=== PATIENT | female | born 1935 | race Caucasian/White ===

== ENCOUNTER 2017-08-16 17:10 | Inpatient (IN) | payer MEDICARE ==
[~2017-08-16] VITALS: Ht 162.6 cm; Wt 47.6 kg
[2017-08-16 20:54] LABS: BASOPHILS 0.2 % (0-2); EOSINOPHILS 0 % (0-7); HEMATOCRIT 31.6 % (36.0-48.0); HEMOGLOBIN 10.3 g/dL (12-16); IMMATURE GRANULOCYTES 0.2 % (0-5); LYMPHOCYTES 20.6 % (15-50); MCH 31.1 pg (26.0-34.0); MCHC 32.6 g/dL (31.0-37.0); MCV 95.5 fL (80.0-100.0); MEAN PLATELET VOLUME 10.1 fL (7.4-10.4); MONOCYTES 17.8 % (2-11); NEUTROPHILS 61.2 % (40-80); PLATELET COUNT 205 10x3/uL (130-400); RBC 3.31 10x6/uL (4.00-5.40); RDW 13.9 % (11.5-14.5); WBC 5.3 10x3/uL (4.8-10.8)
[2017-08-16 21:15] LABS: ALBUMIN 3.3 g/dL (3.4-5.0); ALKALINE PHOSPHATASE 133 U/L (46-116); ALT (SGPT) 20 U/L (10-68); BILIRUBIN - TOTAL 0.29 mg/dL (0.2-1.3); CALC OSMOLALITY 272 mosm/kg (275-300); CALCIUM 8.6 mg/dL (8.5-10.1); CARBON DIOXIDE 25.5 mmol/L (21.0-32.0); CHLORIDE - SERUM 99 mmol/L (98-107); CREATININE - SERUM 0.7 mg/dL (0.6-1.3); GLUCOSE 108 mg/dL (74-106); POTASSIUM - SERUM 4.2 mmol/L (3.5-5.1); PROTEIN - SERUM 7.4 g/dL (6.4-8.2); SODIUM 135 mmol/L (136-145); UREA NITROGEN 18 mg/dL (7-18); eGFR NON AFRICAN AMERICAN 84 mL/min (90-120)
[2017-08-16 21:22] LABS: INR 1.04 (0.85-1.17); PROTIME 13.4 SECONDS (11.6-15.0)
[2017-08-16 22:32] LABS: APPEARANCE CLEAR (CLEAR); BILIRUBIN NEGATIVE (NEGATIVE); COLOR YELLOW (YELLOW); GLUCOSE NEGATIVE (NEGATIVE); KETONE NEGATIVE (NEGATIVE); NITRITE NEGATIVE (NEGATIVE); PROTEIN TRACE mg/dL (NEGATIVE); SPECIFIC GRAVITY 1.015 (1.005-1.020); UROBILINOGEN NORMAL (NORMAL)
--- NOTE | 2017-08-16 23:35 | NUR ---
PT ARRIVED TO UNIT VIA WHEELCHAIR WITH ER CREW. ASSISITED TO BED AND HOOKED TO ICU MONITORS. ASSESSMENT COMPLETED SEE FLOW SHEET FOR DETAILS. WILL CONTINUE TO MONITOR PT.
[2017-08-16 23:46] VITALS: BP 130/48; BMI 18.0
[2017-08-17] VITALS (15 sets, daily range): BP systolic 99–147; BP diastolic 44–66; Ht 162.6 cm; Wt 47.6 kg
--- NOTE | 2017-08-17 01:06 | NUR ---
PT SLEEPING WITH NO SIGNS OF DISTRESS. WILL CONTINUE TO MONITOR.
[2017-08-17] MEDS ORDERED: ULTRAM50 MG PO (02:37)
[2017-08-17] MEDS ORDERED: LEVSIN/ANASP0.125 MG PO (02:37)
--- NOTE | 2017-08-17 03:00 | NUR ---
REASSESSMENT COMPLETED. NO CHANGES. SEE FLOW SHEET FOR FURTHER DETAILS. PT REQUESTED TO USE THE RESTROOM ASSISTED TO AND BACK TO BED AND POSITIONED FOR COMFORT. WILL CONTINUE TO MONITOR.
--- NOTE | 2017-08-17 05:11 | NUR ---
PT RESTING IN BED WITH NO SIGNS OF DISTRESS. WILL CONTINUE TO MONITOR.
--- NOTE | 2017-08-17 08:00 | NUR ---
PT UP TO RESTROOM. VOIDED WITHOUT DIFFICULTY. ASSISTED TO CHAIR. CALL LIGHT WITHIN REACH. SET UP WITH BREAKFAST TRAY.
--- NOTE | 2017-08-17 10:30 | NUR ---
DR. DAWSON AT BEDSIDE. UPDATED ON PT'S STATUS.
--- NOTE | 2017-08-17 11:08 | NUR ---
* Is the patient Alert and Oriented? Yes 0 * How many steps to enter\exit or inside your home? 0 0 * PCP Dr. Lucia 0 * Pharmacy [facility] 0 * Preadmission Environment Assisted Living 0 * Facility Name [facility] 0 * ADLs Partial Dependent 0 * Partial ADLs (Assistance needed) Ambulation 0 * Equipment Bedside Commode Cane Rolling Walker Shower Chair 0 * Additional services required to return to the preadmission environment? Yes 0 * Can the patient safely return to the preadmission environment? Yes 0 * Has this patient been hospitalized within the prior 30 days at any hospital? No Patient Name: HERBERT HAUSER Admission Status: ER Accout number: [id number] Admission Date: 08-16-2017 : 1935 Admission Diagnosis: Attending: MITA, Current LOS: 1 Planned Disposition: Home with Home Health Primary Insurance: MEDICARE A & B Discharge Planning Comments: CM met with patient to assess dc plans/needs. Patient states she lives at [facility]. She reports she uses a walker for ambulating. She also has a cane, BSC, & shower chair. She states she has fallen a couple of times at home. She goes to the dining room for all meals. Discussed SNF & home health options. She is agreeable to home health referral at discharge. YESY signed for [facility]. CM will follow & assist as needed. Lever Miller: Shana Magaña
--- NOTE | 2017-08-17 12:30 | NUR ---
PT SITTING UP AND EATING LUNCH. VITAL SIGNS STABLE.
--- NOTE | 2017-08-17 16:00 | NUR ---
PT'S CAREGIVER AT BEDSIDE. NO NEEDS AT THIS TIME. BROUGHT PT A PAIR OF GLASSES.
--- NOTE | 2017-08-17 18:32 | NUR ---
RECEIVED PT FOR CARE. PT RESTING IN BED WITH EYES OPEN. CALL LIGHT WITHIN REACH. VSS AT THIS TIME.
--- NOTE | 2017-08-17 19:30 | NUR ---
REPORT RECIEVED. ASSESSMENT COMPLETED. SEE FLOW SHEET FOR FURTHER DETAILS. PT IN CHAIR AT BED SIDE. ASSISTED TO BED AND POSITIONED FOR COMFORT. WILL CONTINUE TO MONITOR PT.
--- NOTE | 2017-08-17 21:00 | NUR ---
PT SLEEPING WITH EYES CLOSED. DENIES ANY NEEDS. WILL CONTINUE TO MONITOR.
--- NOTE | 2017-08-17 23:00 | NUR ---
VSS. PT IN BED DENIES ANY NEEDS. WILL CONTINUE TO MNITOR PT.
--- NOTE | 2017-08-18 01:00 | NUR ---
PT REQUEST TO GO TO THE RESTROOM ASSISTED AND BACK TO BED. DENIES ANY NEEDS. CALL LIGHT IN REACH, WILL CONTINUE TO MONITOR PT.
[2017-08-18 03:00] VITALS: BP 136/62
--- NOTE | 2017-08-18 03:00 | NUR ---
PT IN BED ASLEEP. DENIES ANY NEEDS.VSS. WILL CONTINUE TO MONITOR PT.
[2017-08-18 03:58] LABS: BASOPHILS 0.2 % (0-2); EOSINOPHILS 0 % (0-7); HEMATOCRIT 31.1 % (36.0-48.0); IMMATURE GRANULOCYTES 0.2 % (0-5); LYMPHOCYTES 21.8 % (15-50); MCH 30.4 pg (26.0-34.0); MCHC 32.2 g/dL (31.0-37.0); MCV 94.5 fL (80.0-100.0); MEAN PLATELET VOLUME 9.7 fL (7.4-10.4); NEUTROPHILS 59.8 % (40-80); PLATELET COUNT 209 10x3/uL (130-400); RBC 3.29 10x6/uL (4.00-5.40); RDW 14.1 % (11.5-14.5); WBC 5.9 10x3/uL (4.8-10.8)
[2017-08-18 04:16] LABS: CALC OSMOLALITY 279 mosm/kg (275-300); CALCIUM 8.8 mg/dL (8.5-10.1); CARBON DIOXIDE 27.7 mmol/L (21.0-32.0); CHLORIDE - SERUM 103 mmol/L (98-107); CREATININE - SERUM 0.7 mg/dL (0.6-1.3); GLUCOSE 96 mg/dL (74-106); POTASSIUM - SERUM 3.6 mmol/L (3.5-5.1); SODIUM 138 mmol/L (136-145); eGFR NON AFRICAN AMERICAN 84 mL/min (90-120)
[2017-08-18 04:18] LABS: UREA NITROGEN 25 mg/dL (7-18)
[2017-08-18 07:00] VITALS: BP 127/50
--- NOTE | 2017-08-18 07:15 | NUR ---
REPORT RECIEVED FROM COMPUTER OPERATIONS SPECIALIST NURSE. PT RESTING IN BED QUIETLY. NO S/SX OF ACUTE DISTRESS NOTED AT THIS TIME. VSS. FULL ASSESSMENT COMPLETE PER FLOWSHEET. REFER FOR DETAILS. CALL LIGHT IN REACH. BED IN LOW POSITION WITH ALARM ON. WILL CONT TO ASSESS.
--- NOTE | 2017-08-18 08:00 | NUR ---
ASSISTED TO BATHROOM. VOIDED CLEAR YELLOW URINE. ASSISTED BACK TO THE BED, PT REFUSED TO SIT IN RECLINER FOR BREAKFAST.
--- NOTE | 2017-08-18 09:34 | NUR ---
Patient Name: HERBERT HAUSER Encounter No: [id number] : 1935 Primary Insurance: MEDICARE A & B Anticipated DC Date: 08-18-2017 Planned Disposition: Home with Home Health External Planned Provider: [facility] DCP follow-up note: DC order rec'd. Home Health order faxed and called to Tiana with [facility]. Patient in agreement with discharge plan. No changes to plan. Shana Magaña
--- NOTE | 2017-08-18 10:00 | NUR ---
[facility] CALLED TO REPORT OF PT'S D/C.
--- NOTE | 2017-08-18 10:01 | NUR ---
Order rec'd for [facility] Call[facility] - Order, face sheet, and dc instructions faxed.
--- NOTE | 2017-08-18 11:00 | NUR ---
D/C'D VIA W/C CAREGIVER AT BEDSIDE FOR TRANSPORTATION. DENIES QUESTIONS AT THIS TIME. INSTRUCTED TO CALL US IF SHE THOUGHT OF ANY QUESTIONS WHEN SHE GOT HOME. ALL D/C INSTRUCTIONS REVIEWED WITH PT.
== END 2017-08-18 11:00 | disposition home health service (06) | DRG 84 ==
LOC: D.ER 17:10 → D.CVICU 20:51
PROVIDERS: Physician Assistant; ADMIT Family Medicine
DX: S06.5X9A Traumatic subdural hemorrhage with loss of consciousness of unspecified duration, initial encounter (principal); W19.XXXA Unspecified fall, initial encounter; F03.90 Unspecified dementia, unspecified severity, without behavioral disturbance, psychotic disturbance, mood disturbance, and anxiety; M35.00 Sjogren syndrome, unspecified

== ENCOUNTER → 2017-08-25 10:10 | Outpatient (CLI) | payer MEDICARE ==
[2017-08-17 10:42] VITALS: BMI 17.9
[~2017-08-25 10:10] MED LIST: LEVSIN/ANASP0.125 MG PO; ULTRAM50 MG PO
== END | disposition home or self-care (01) ==
LOC: D.CT 10:10
DX: S06.5X9A Traumatic subdural hemorrhage with loss of consciousness of unspecified duration, initial encounter (principal); X58.XXXA Exposure to other specified factors, initial encounter; Y93.89 Activity, other specified; Y92.89 Other specified places as the place of occurrence of the external cause

== ENCOUNTER 2017-08-31 12:50 | Emergency (ER) | payer MEDICARE ==
[2017-08-17 10:42] VITALS: BMI 17.9
[2017-08-31 13:51] LABS: BASOPHILS 0.2 % (0-2); EOSINOPHILS 0 % (0-7); HEMATOCRIT 31.6 % (36.0-48.0); HEMOGLOBIN 10.2 g/dL (12-16); LYMPHOCYTES 25.2 % (15-50); MCH 30.5 pg (26.0-34.0); MCHC 32.3 g/dL (31.0-37.0); MCV 94.6 fL (80.0-100.0); MEAN PLATELET VOLUME 9.2 fL (7.4-10.4); MONOCYTES 17.6 % (2-11); RBC 3.34 10x6/uL (4.00-5.40); RDW 14.1 % (11.5-14.5)
[2017-08-31 13:52] LABS: PLATELET COUNT 280 10x3/uL (130-400)
[2017-08-31 14:07] LABS: ALBUMIN 3.3 g/dL (3.4-5.0); ALKALINE PHOSPHATASE 112 U/L (46-116); ALT (SGPT) 16 U/L (10-68); BILIRUBIN - TOTAL 0.21 mg/dL (0.2-1.3); CALC OSMOLALITY 279 mosm/kg (275-300); CALCIUM 9.2 mg/dL (8.5-10.1); CARBON DIOXIDE 29.1 mmol/L (21.0-32.0); CHLORIDE - SERUM 102 mmol/L (98-107); CREATININE - SERUM 0.8 mg/dL (0.6-1.3); GLUCOSE 106 mg/dL (74-106); POTASSIUM - SERUM 4.4 mmol/L (3.5-5.1); PROTEIN - SERUM 7.5 g/dL (6.4-8.2); SODIUM 139 mmol/L (136-145); UREA NITROGEN 19 mg/dL (7-18); eGFR NON AFRICAN AMERICAN 72 mL/min (90-120)
[2017-08-31 14:16] LABS: CREATINE KINASE 52 UL (21-215); MAGNESIUM - SERUM 2.1 mg/dL (1.8-2.4); PRO BNP 272 pg/mL (0-450)
[2017-08-31 14:17] LABS: TROPONIN-I < 0.017 ng/mL (0.000-0.060)
== END 2017-08-31 14:54 | disposition home or self-care (01) ==
LOC: D.ER 12:50
PROVIDERS: Emergency Medicine
DX: R42 Dizziness and giddiness (principal); R53.1 Weakness; S06.5X9A Traumatic subdural hemorrhage with loss of consciousness of unspecified duration, initial encounter; X58.XXXA Exposure to other specified factors, initial encounter; Y93.89 Activity, other specified; Y92.89 Other specified places as the place of occurrence of the external cause; D64.9 Anemia, unspecified; M32.9 Systemic lupus erythematosus, unspecified; M35.00 Sjogren syndrome, unspecified; I44.4 Left anterior fascicular block

== ENCOUNTER 2017-09-02 13:19 | Inpatient (IN) | payer MEDICARE ==
[~2017-09-02] VITALS: Ht 162.6 cm; Wt 44.9 kg
--- NOTE | ~2017-09-02 | OP ---
PATIENT NAME: HERBERT HAUSER MEDICAL RECORD: [id number] :[birth year] LOCATION:[facility] [id number] ADMISSION DATE:09/02/17 SURGEON: TAYO DAWSON MD DATE OF OPERATION: 09/03/2017 PREOPERATIVE DIAGNOSIS: Left frontal subacute subdural hematoma. POSTOPERATIVE DIAGNOSIS: Left frontal subacute subdural hematoma. PROCEDURE: Left frontal timothy hole for evacuation of subdural hematoma. DESCRIPTION OF TECHNIQUE: After induction of general endotracheal anesthesia, the patient's left frontal area were prepped and draped in a sterile fashion. After infiltration of 1% lidocaine with 1:100,000 epinephrine over the left superior temporal line. A scalp incision was carried out with a #10 blade. A Midas Maxwell drill using a craniotome was used to create a timothy hole. Next, the dura was cauterized in a cruciate manner with bipolar cautery and opened with #11 blade. There was brisk egress of subacute subdural hematoma fluids from the subdural space. This was irrigated and closed with luke-warm saline irrigant solution until was crystal clear. The galea was reapproximated with interrupted 2-0 Vicryl suture. The skin was closed with anthony. A sterile dressing was applied to the wound. The patient was awakened in good condition and taken to recovery. All counts were reported as correct. ESTIMATED BLOOD LOSS: Minimal. TRANSINT:[id number] Voice Confirmation ID: [id number] DOCUMENT ID: [id number] TAYO DAWSON MD at 1324 CC: [id number] DICTATION DATE: 09/10/17 1430 CYTOMETRY TECHNOLOGIST: 09/10/17 1519 DIS IN 09/05/17 [place] [id number] [place] [id number]
[2017-09-02 14:01] LABS: BASOPHILS 0.3 % (0-2); EOSINOPHILS 0.2 % (0-7); HEMATOCRIT 32.3 % (36.0-48.0); HEMOGLOBIN 10.6 g/dL (12-16); IMMATURE GRANULOCYTES 0.2 % (0-5); LYMPHOCYTES 24.8 % (15-50); MCH 30.9 pg (26.0-34.0); MCHC 32.8 g/dL (31.0-37.0); MCV 94.2 fL (80.0-100.0); MEAN PLATELET VOLUME 9.7 fL (7.4-10.4); MONOCYTES 17.1 % (2-11); NEUTROPHILS 57.4 % (40-80); PLATELET COUNT 293 10x3/uL (130-400); RBC 3.43 10x6/uL (4.00-5.40); RDW 14.2 % (11.5-14.5); WBC 5.7 10x3/uL (4.8-10.8)
[2017-09-02 14:15] LABS: ALBUMIN 3.4 g/dL (3.4-5.0); ANION GAP 9.4 mmol/L (8-16); BILIRUBIN - TOTAL 0.25 mg/dL (0.2-1.3); CALCIUM 8.7 mg/dL (8.5-10.1); CARBON DIOXIDE 28.6 mmol/L (21.0-32.0); CREATININE - SERUM 0.8 mg/dL (0.6-1.3); PROTEIN - SERUM 7.9 g/dL (6.4-8.2)
[2017-09-02 14:22] LABS: APTT 29.9 SECONDS (22.8-39.4)
[2017-09-02 14:23] LABS: INR 0.95 (0.85-1.17); PROTIME 12.3 SECONDS (11.6-15.0)
[2017-09-02 15:59] LABS: APPEARANCE CLEAR (CLEAR); BILIRUBIN NEGATIVE (NEGATIVE); COLOR YELLOW (YELLOW); GLUCOSE NEGATIVE (NEGATIVE); KETONE NEGATIVE (NEGATIVE); NITRITE NEGATIVE (NEGATIVE); PROTEIN NEGATIVE (NEGATIVE); UROBILINOGEN NORMAL (NORMAL)
[2017-09-02 23:43] VITALS: BP 139/48; BMI 17.2
[2017-09-03] VITALS (9 sets, daily range): BP systolic 116–172; BP diastolic 59–83; Ht 162.6 cm; Wt 44.9 kg
[2017-09-03 09:58] LABS: HEMATOCRIT 30.9 % (36.0-48.0); HEMOGLOBIN 10.2 g/dL (12-16); MCH 31.1 pg (26.0-34.0); MCV 94.2 fL (80.0-100.0); MEAN PLATELET VOLUME 9.8 fL (7.4-10.4); PLATELET COUNT 268 10x3/uL (130-400); RBC 3.28 10x6/uL (4.00-5.40); RDW 14.3 % (11.5-14.5)
[2017-09-03 09:59] LABS: WBC 3.9 10x3/uL (4.8-10.8)
[2017-09-03 10:19] LABS: ALKALINE PHOSPHATASE 100 U/L (46-116); ALT (SGPT) 14 U/L (10-68); BILIRUBIN - TOTAL 0.35 mg/dL (0.2-1.3); CALC OSMOLALITY 272 mosm/kg (275-300); CALCIUM 8.9 mg/dL (8.5-10.1); CARBON DIOXIDE 25.4 mmol/L (21.0-32.0); CHLORIDE - SERUM 103 mmol/L (98-107); CREATININE - SERUM 0.7 mg/dL (0.6-1.3); GLUCOSE 89 mg/dL (74-106); POTASSIUM - SERUM 4.1 mmol/L (3.5-5.1); PROTEIN - SERUM 7.1 g/dL (6.4-8.2); SODIUM 137 mmol/L (136-145); UREA NITROGEN 12 mg/dL (7-18); eGFR NON AFRICAN AMERICAN 84 mL/min (90-120)
[2017-09-03 10:29] LABS: LYMPHOCYTES 34 % (15-50); MONOCYTES 12 % (2-11); NEUTROPHILS 49 % (40-80); PLATELET ESTIMATE NORMAL
[2017-09-03 22:54] LABS: APPEARANCE CLEAR (CLEAR); BILIRUBIN NEGATIVE (NEGATIVE); COLOR YELLOW (YELLOW); GLUCOSE NEGATIVE (NEGATIVE); KETONE MODERATE mg/dL (NEGATIVE); NITRITE NEGATIVE (NEGATIVE); PROTEIN NEGATIVE (NEGATIVE); UROBILINOGEN NORMAL (NORMAL)
[2017-09-03 23:52] LABS: BASOPHILS 0.1 % (0-2); EOSINOPHILS 0 % (0-7); HEMATOCRIT 32.1 % (36.0-48.0); HEMOGLOBIN 10.5 g/dL (12-16); IMMATURE GRANULOCYTES 0.1 % (0-5); LYMPHOCYTES 14.7 % (15-50); MCH 30.7 pg (26.0-34.0); MCHC 32.7 g/dL (31.0-37.0); MCV 93.9 fL (80.0-100.0); MEAN PLATELET VOLUME 9.3 fL (7.4-10.4); MONOCYTES 13.8 % (2-11); NEUTROPHILS 71.3 % (40-80); PLATELET COUNT 258 10x3/uL (130-400); RBC 3.42 10x6/uL (4.00-5.40); RDW 14.5 % (11.5-14.5)
[2017-09-03 23:57] LABS: WBC 6.9 10x3/uL (4.8-10.8)
[2017-09-04] VITALS (23 sets, daily range): BP systolic 94–153; BP diastolic 54–88
[2017-09-04 04:16] LABS: BASOPHILS 0.2 % (0-2); EOSINOPHILS 0 % (0-7); HEMATOCRIT 30.1 % (36.0-48.0); HEMOGLOBIN 9.8 g/dL (12-16); IMMATURE GRANULOCYTES 0.3 % (0-5); LYMPHOCYTES 15.1 % (15-50); MCH 30.5 pg (26.0-34.0); MCHC 32.6 g/dL (31.0-37.0); MCV 93.8 fL (80.0-100.0); MEAN PLATELET VOLUME 10.4 fL (7.4-10.4); MONOCYTES 17.1 % (2-11); NEUTROPHILS 67.3 % (40-80); PLATELET COUNT 220 10x3/uL (130-400); RBC 3.21 10x6/uL (4.00-5.40); RDW 14.5 % (11.5-14.5); WBC 6.1 10x3/uL (4.8-10.8)
[2017-09-04 04:42] LABS: ALBUMIN 2.9 g/dL (3.4-5.0); ANION GAP 14.4 mmol/L (8-16); BILIRUBIN - TOTAL 0.27 mg/dL (0.2-1.3); CALCIUM 8.3 mg/dL (8.5-10.1); CARBON DIOXIDE 24.3 mmol/L (21.0-32.0); CREATININE - SERUM 0.8 mg/dL (0.6-1.3); POTASSIUM - SERUM 3.7 mmol/L (3.5-5.1); PROTEIN - SERUM 6.6 g/dL (6.4-8.2)
[2017-09-05] VITALS (19 sets, daily range): BP systolic 121–151; BP diastolic 53–86
[2017-09-05 05:04] LABS: BASOPHILS 0 % (0-2); EOSINOPHILS 0 % (0-7); HEMATOCRIT 31.5 % (36.0-48.0); HEMOGLOBIN 10.2 g/dL (12-16); IMMATURE GRANULOCYTES 0.3 % (0-5); LYMPHOCYTES 12.4 % (15-50); MCH 30.2 pg (26.0-34.0); MCHC 32.4 g/dL (31.0-37.0); MCV 93.2 fL (80.0-100.0); MEAN PLATELET VOLUME 10.4 fL (7.4-10.4); MONOCYTES 2.9 % (2-11); NEUTROPHILS 84.4 % (40-80); PLATELET COUNT 256 10x3/uL (130-400); RBC 3.38 10x6/uL (4.00-5.40); RDW 14.4 % (11.5-14.5)
[2017-09-05 05:09] LABS: WBC 3.1 10x3/uL (4.8-10.8)
[2017-09-05 05:20] LABS: ALBUMIN 2.5 g/dL (3.4-5.0); ALKALINE PHOSPHATASE 83 U/L (46-116); ALT (SGPT) 13 U/L (10-68); CALC OSMOLALITY 278 mosm/kg (275-300); CALCIUM 8.8 mg/dL (8.5-10.1); CARBON DIOXIDE 26.7 mmol/L (21.0-32.0); CHLORIDE - SERUM 102 mmol/L (98-107); CREATININE - SERUM 0.6 mg/dL (0.6-1.3); GLUCOSE 136 mg/dL (74-106); POTASSIUM - SERUM 4.2 mmol/L (3.5-5.1); PROTEIN - SERUM 6.7 g/dL (6.4-8.2); SODIUM 138 mmol/L (136-145); UREA NITROGEN 14 mg/dL (7-18); eGFR NON AFRICAN AMERICAN > 90 mL/min (90-120)
== END 2017-09-05 19:03 | DRG 26 ==
LOC: D.ER 13:19 → D.MS 20:11 → D.ICU 20:11
PROVIDERS: Emergency Medicine; Family Medicine; Neurological Surgery
PROC: 00940ZZ Drainage of Intracranial Subdural Space, Open Approach (ICD-10-PCS; principal; 2017-09-03 11:45)
DX: S06.5X0A Traumatic subdural hemorrhage without loss of consciousness, initial encounter (principal); E87.1 Hypo-osmolality and hyponatremia; W19.XXXA Unspecified fall, initial encounter; F03.90 Unspecified dementia, unspecified severity, without behavioral disturbance, psychotic disturbance, mood disturbance, and anxiety; M35.00 Sjogren syndrome, unspecified; R41.0 Disorientation, unspecified

== ENCOUNTER 2017-09-05 18:45 | Inpatient (IN) | payer MEDICARE ==
[~2017-09-05] VITALS: Ht 162.6 cm; Wt 44.9 kg
--- NOTE | 2017-09-05 18:45 | NUR ---
PT. JUST ARRIVED TO REHAB UNIT VIA BED AND ESCORTED BY HOSPITAL NURSE STAFF FROM TRANSFERRING UNIT. ORIENTED TO ROOM AND EXPLAINED ADMISSION PROCESS WILL CONCLUDE ONCE PT. HAS BEEN ADMITTED INTO THE COMPUTER SYSTEM. PT. ACKNOWLEDGED UNDERSTANDING AND SAID NOT TO WORRY SHE WAS'T GOING ANYWHERE. CALL LIGHT WITHIN REACH AND CANTRELL TO BSD WITHOUT PROBLEMS.
[2017-09-05 22:41] VITALS: BP 146/59; BMI 17.0
--- NOTE | 2017-09-06 03:00 | NUR ---
PT. IN BED WITH HOB UP AT LEAST 30 DEGREES. EYES CLOSED AND RESP. EVEN. CANTRELL TO BSD WITHOUT PROBLEMS AND HER CALL LIGHT IS WITHIN REACH.
[2017-09-06 06:55] LABS: BASOPHILS 0 % (0-2); EOSINOPHILS 0 % (0-7); HEMATOCRIT 31.2 % (36.0-48.0); HEMOGLOBIN 10.2 g/dL (12-16); IMMATURE GRANULOCYTES 0.1 % (0-5); LYMPHOCYTES 5.7 % (15-50); MCH 30.4 pg (26.0-34.0); MCHC 32.7 g/dL (31.0-37.0); MCV 92.9 fL (80.0-100.0); MONOCYTES 7.5 % (2-11); NEUTROPHILS 86.7 % (40-80); PLATELET COUNT 258 10x3/uL (130-400); RBC 3.36 10x6/uL (4.00-5.40); RDW 14.2 % (11.5-14.5)
[2017-09-06 07:01] LABS: WBC 8.4 10x3/uL (4.8-10.8)
[2017-09-06 07:12] LABS: CALC OSMOLALITY 279 mosm/kg (275-300); CALCIUM 8.6 mg/dL (8.5-10.1); CARBON DIOXIDE 26.2 mmol/L (21.0-32.0); CHLORIDE - SERUM 104 mmol/L (98-107); CREATININE - SERUM 0.6 mg/dL (0.6-1.3); GLUCOSE 130 mg/dL (74-106); SODIUM 138 mmol/L (136-145); UREA NITROGEN 17 mg/dL (7-18); eGFR NON AFRICAN AMERICAN > 90 mL/min (90-120)
[2017-09-06 07:13] LABS: POTASSIUM - SERUM 3.4 mmol/L (3.5-5.1)
--- NOTE | 2017-09-06 08:15 | NUR ---
PT SITTING UP EATING BREAKFAST, DENIES NEEDS. WCTM.
[2017-09-06 08:51] VITALS: BP 156/70
[2017-09-06 11:03] VITALS: Ht 162.6 cm; Wt 44.9 kg
--- NOTE | 2017-09-06 14:00 | NUR ---
PT TOLERATED BREAKFAST AND LUNCH WELL. WILL CONTINUE FULL LIQUIDS THROUGH TODAY AND POSSIBLY ADV TOMORROW.
--- NOTE | 2017-09-06 18:30 | NUR ---
PT RESTING IN BED, WATCHING TV, DENIES NEEDS. WCTM.
--- NOTE | 2017-09-06 19:05 | NUR ---
IN BED, AWAKE. DENIES NEEDS.
[2017-09-06 21:10] VITALS: BP 123/60
--- NOTE | 2017-09-06 21:10 | NUR ---
ASSESSMENT COMPLETE. PATIENT HAS NO SCHEDULED HS MEDS. ASSISTED HER TO COMPLETE HER MENU. PLACED HER PARTIALS IN DENTURE CUP AND SET THEM TO SOAK OVERNIGHT.
--- NOTE | 2017-09-06 22:15 | NUR ---
REMAINS IN BED, EYES NOW CLOSED. APPEARS COMFORTABLE
--- NOTE | 2017-09-06 23:30 | NUR ---
BLADDER TRAINING CONTINUES. CANTRELL UNCLAMPED FOR 10 MINUTES AND ALLOWED TO DRAIN. NOW RECLAMPED.
--- NOTE | 2017-09-07 00:10 | NUR ---
PATIENT AWAKE AFTER REPOSITIONING HER EARLIER @ 2330. DENIES CURRENT NEEDS.
--- NOTE | 2017-09-07 00:10 | NUR ---
PATIENT URINATED 250ML CLEAR YELLOW URINE WHILE ON BEDPAN. VERY SMALL AMT URINE INCONTINENCE IN BRIEF. PULL-UP WAS CHANGED AFTER CLEANSING PATIENT.
--- NOTE | 2017-09-07 01:40 | NUR ---
UNCLAMPED CANTRELL CATH AROUND 0125. BEFORE I COULD RECLAMP IT PATIENT CALLED CRISTINO REPORTED SHE IS WET. CLEANSED HER AND CHANGED HER PINK PAD AND PULL-UP BRIEF AND REMOVED HER WET SCRUB BOTTOMS. IS EITHER URINATING AROUND THE CATHETER DUE TO BLADDER SPASMS OR BLADDER RESISTANCE TO CLAMPING. URINE VOLUME DURING UNCLAMPED PERIODS IS FAIRLY LOW, SO I SUSPECT BLADDER SPASMS.
--- NOTE | 2017-09-07 03:45 | NUR ---
REQUESTED ASSISTANCE TO RAISE HOB TO 40 DEGREES AGAIN. CONTINUES WITH BLADDER TRAINING. CANTRELL IS NOW RECLAMPED AFTER DRAINING FOR ABOUT 15 MINUTES. DENIES FURTHER NEEDS.
--- NOTE | 2017-09-07 05:50 | NUR ---
AWAKE. DENIES CURRENT NEEDS.
--- NOTE | 2017-09-07 07:27 | NUR ---
SITTING UP IN BED RESTING. DENIES ANY NEEDS. ALERT AND ORIENTED X4. NO S/SX OF ACUTE DISTRESS NOTED. CALL LIGHT AND PERSONAL ITEMS WITHIN REACH, BED LOW AND ALARM ON. WILL CONTINUE TO MONITOR
[2017-09-07 07:59] VITALS: BP 153/62
--- NOTE | 2017-09-07 09:40 | NUR ---
Nutrition Follow Up: Pt stated that her appetite is good. She said that she is drinking Ensure but prefers Boost. RD will order Boost with meals. Pt stated that she has lost about 20# a few years ago; she said she has not been able to gain the wt back but she has not had any recent wt loss. Pt is eating 55% meal avg on a full liquid diet. No BM since admit. Meds and labs reviewed. Rec continue advancing diet as tolerated per RESIDENTIAL THERAPIST. Will send Boost TID. RD following.
--- NOTE | 2017-09-07 10:30 | NUR ---
PT WAS IN RESTROOM WITH ROSEY ATTEMPTING TO USE RESTROOM, PT VAGALED DOWN. ROSEY AND JAMIE FLORES MOVED PT TO SAFETY IN THE BED AND CALLED FOR NURSING. VITALS WERE STABLE AND IS ALERT AND ORIENTED X3. BP 121/49 P78 R17 O2 97% ROOM AIR. ATTEMPTED TO GIVE PT MIRALAX BUT REFUSED. PUT ON BEDPAN PER PT REQUEST, HAD A LRG BM.
--- NOTE | 2017-09-07 12:29 | NUR ---
SITTING UP IN BED EATING LUNCH. DENIES ANY NEEDS OR PAIN. NO S/SX OF ACUTE DISTRESS NOTED. CALL LIGHT AND PERSONAL ITEMS WITHIN REACH, BED LOW AND ALARM ON. WILL CONTINUE TO MONITOR
--- NOTE | 2017-09-07 13:13 | RHP ---
PATIENT: HERBERT HAUSER MEDICAL RECORD: [id number] ACCOUNT: [id number] [id number] : [birth year] ADMISSION DATE: 09/05/17 REHABILITATION HISTORY AND PHYSICAL EXAMINATION POST ADMISSION PHYSICIAN EXAMINATION POST ADMISSION PHYSICAL EXAMINATION AND HISTORY AND PHYSICAL DATE OF ADMISSION: 09/05/2017 ADMITTING DIAGNOSES: A subdural hematoma. HISTORY OF PRESENT ILLNESS: The patient is an 82-year-old female patient admitted to inpatient rehab after tripping on covers and falling, hitting the head on the corner of the dresser. Caregiver reported some facial drooping and slurred speech the next morning with breakfast, was brought to the Emergency Room. She has a history of Sjogren and dementia. Dr. Anglin was consulted. He did a left frontal timothy hole on the patient. She was transferred to ICU to monitor her recovery. The patient has a recent onset of cognitive linguistic deficits, status post timothy hole secondary to fall. She is very confused. She is only alert to self. She believes it is 1907 and that she is at a store. She has some word finding difficulty at times with her responses. She is only partially aware of these errors. Her sentence formulation is moderately poor. She was able to name simple items, follow 1 and 2-step commands. Deficits appear to be in higher level cognitive with linguistic skills moderate to severely impaired with this. She is currently living in [facility] with a caregiver that checks in on her frequently. She was independent in her home and would like to return home at her prior level of functioning or better if possible, so she will definitely require speech therapy and also physical and occupational therapy. COMORBIDITIES: Include subdural hematoma, Sjogren's, dementia, hyponatremia following cataracts. PAST MEDICAL HISTORY: Significant for cataracts, Sjogren's and dementia. PAST SURGICAL HISTORY: Includes hysterectomy and now a timothy hole. ALLERGIES: PREDNISONE. MEDICATIONS: Current medications just include tramadol 50 mg q.6 hours p.r.n. She is on Levsin as needed for abdominal cramping and polyethylene glycol 17 grams in 8 ounces of water daily. HABITS: No alcohol or tobacco use. FAMILY HISTORY: Noncontributory. SOCIAL HISTORY: The patient wants to return back to her prior level of functioning at [facility]. REVIEW OF SYSTEMS: Currently difficult to obtain, but she denies any problems at this time. HEENT: Denies cold, cough, or congestion. CARDIOVASCULAR: Denies any chest pain. HISTORY AND PHYSICAL [id number] HERBERT HAUSER LUNGS: Denies any shortness of breath. PHYSICAL EXAMINATION: VITAL SIGNS: Stable. She is afebrile. GENERAL: An elderly female in no acute distress, alert upon exam. HEENT: Normocephalic, atraumatic. NEUROLOGIC: She is noted to have a surgical area noted. She also has some hair removed from this area. LUNGS: Clear at this time. HEART: Regular rate and rhythm. ABDOMEN: Benign. EXTREMITIES: No clubbing, cyanosis or edema. NEUROLOGIC: Nonfocal, but she does have some confusion noted. LABORATORY DATA: Her white count is 8.4, H&H of 10 and 31, and platelet count 258. Sodium is 138, potassium 3.4, BUN and creatinine of 17 and 0.6 and blood sugar is noted to be 170. ASSESSMENT: This is an 82-year-old female patient admitted to rehab with a working diagnosis of subdural hematoma caused by a fall. The patient has potential to make improvement. We instituted the following multidisciplinary therapies including to, but not limited to physical, occupational, respiratory, speech, nutritional services, prosthetics and orthotics. Given her complex condition and risk for more complications, rehabilitation services cannot be provided at a lower level of care such as a shelter facility. PLAN: 1. Admit to [facility] rehab for intensive inpatient therapy to include the following disciplines: A. Physical therapy to improve gait, all transfer skills and bed mobility to a modified independent level. B. Occupational therapy to improve activities of daily living to a modified independent level. C. Case management to assist with discharge planning and placement options. D. Nutrition to assist with nutritional needs. E. Rehabilitation nursing to assist in monitoring the following medical conditions and to assist with any type of bowel or bladder management. 2. The patient's current medication and medical care will be continued. 3. The patient will be placed on standard fall precautions. 4. The patient's estimated length of stay is approximately 7-10 days. 5. We will have this patient working with speech therapy throughout her stay and hopefully improve her cognitive function at this time. 6. We will discuss this patient during care team staff meeting this week. TRANSINT:[id number] Voice Confirmation ID: [id number] DOCUMENT ID: [id number] MAL notes whether there has been none or any medical/functional change since admission: - No change since pre-admission screen. MAL attests patient continues to be appropriate for IRF: - Continues to be appropriate. HISTORY AND PHYSICAL [id number] HERBERT HAUSER SCOTT MD at 1313 CC: [id number] DICTATION DATE: 09/06/17 0849 CHIEF LIBRARIAN CIRCULATION DEPARTMENT: 09/06/17 1129 ADM IN [place] [id number] [place] [id number]
--- NOTE | 2017-09-07 15:36 | NUR ---
SITTING UP IN BED WATCHING TV. DENIES ANY PAIN OR NEEDS. NO S/SX OF ACUTE DISTRESS NOTED. CALL LIGHT AND PERSONAL ITEMS WITHIN REACH, BED LOW AND ALARM ON. WILL CONTINUE TO MONITOR
--- NOTE | 2017-09-07 18:13 | NUR ---
SITTING UP IN BED EATING DINNER. DENIES ANY NEEDS OR PAIN. CALL LIGHT AND PERSONAL ITEMS WITHIN REACH, BED LOW AND ALARM ON. WILL CONTINUE TO MONITOR
--- NOTE | 2017-09-07 19:25 | NUR ---
IN BED AWAKE. GAVE HER MENU TO COMPLETE. DENIES NEEDS.
[2017-09-07 20:50] VITALS: BP 137/64
--- NOTE | 2017-09-07 20:50 | NUR ---
ASSESSMENT COMPLETE. PATIENT HAS NO SCHEDULED HS MEDS. DENIES CURRENT NEEDS OTHER THAN SHE WANTS TO BE HOME AND NOT IN REHAB.
--- NOTE | 2017-09-07 22:10 | NUR ---
IN BED AWAKE. DENIES NEEDS.
--- NOTE | 2017-09-08 00:10 | NUR ---
RESTING IN BED, EYES CLOSED.
--- NOTE | 2017-09-08 01:50 | NUR ---
PATIENT AWAKE. SAYS SHE HAS BEEN SLEEPING, BUT I HAVE NOT NOTICED IT ON MY ROUNDS. HAS BEEN AWAKE ALL BUT ONE OF MY ROUNDS SO FAR.
--- NOTE | 2017-09-08 04:30 | NUR ---
AWAKE. DENIES NEEDS. ASSISTED HER TO REPOSITION HIGHER UP IN BED.
--- NOTE | 2017-09-08 06:15 | NUR ---
D/C'D CANTRELL CATH PER ORDERS. URINE OUTPUT APPROX 550ML DARK YELLOW URINE. PERINEAL CARE GIVEN BY CLIENT PROGRAM MANAGER WHO REPORTED PINK-TINGED SECRETIONS IN PERINEAL AREA. CLIENT PROGRAM MANAGER BATHED PATIENT AND CHANGED HER SCRUB TOP, PULL-UP BRIEF AND ALL BED LINENS. PATIENT DENIES CURRENT NEEDS.
[2017-09-08 06:53] LABS: BASOPHILS 0 % (0-2); EOSINOPHILS 0 % (0-7); HEMATOCRIT 34.6 % (36.0-48.0); HEMOGLOBIN 11.2 g/dL (12-16); IMMATURE GRANULOCYTES 0.2 % (0-5); LYMPHOCYTES 7.8 % (15-50); MCH 30.1 pg (26.0-34.0); MCHC 32.4 g/dL (31.0-37.0); MEAN PLATELET VOLUME 10.8 fL (7.4-10.4); MONOCYTES 10.4 % (2-11); NEUTROPHILS 81.6 % (40-80); PLATELET COUNT 286 10x3/uL (130-400); RBC 3.72 10x6/uL (4.00-5.40); RDW 14.3 % (11.5-14.5)
[2017-09-08 06:55] LABS: WBC 12.7 10x3/uL (4.8-10.8)
[2017-09-08 06:56] LABS: CALC OSMOLALITY 274 mosm/kg (275-300); CALCIUM 8.6 mg/dL (8.5-10.1); CHLORIDE - SERUM 101 mmol/L (98-107); CREATININE - SERUM 0.7 mg/dL (0.6-1.3); GLUCOSE 107 mg/dL (74-106); POTASSIUM - SERUM 3.2 mmol/L (3.5-5.1); SODIUM 135 mmol/L (136-145); eGFR NON AFRICAN AMERICAN 84 mL/min (90-120)
[2017-09-08 07:01] LABS: UREA NITROGEN 26 mg/dL (7-18)
--- NOTE | 2017-09-08 07:20 | NUR ---
SITTING UP IN BED WATCHING TV. ALERT AND ORIENTED X3. DENIES ANY NEEDS OR PAIN. NO S/SX OF ACUTE DISTRESS NOTED. CALL LIGHT AND PERSONAL ITEMS WITHIN REACH, BED LOW AND ALARM ON. WILL CONTINUE TO MONITOR
[2017-09-08 07:56] VITALS: BP 135/63
--- NOTE | 2017-09-08 10:16 | NUR ---
SITTING UP IN W/C WATCHING TV. DENIES ANY NEEDS OR PAIN. NO S/SX OF ACUTE DISTRESS NOTED. CALL LIGHT AND PERSONAL ITEMS WITHIN REACH, W/C BRAKES LOCKED AND XIAO ALARM ON. WILL CONTINUE TO MONITOR
--- NOTE | 2017-09-08 12:00 | NUR ---
SITTING UP IN BED EATING LUNCH.FAMILY AT BEDSIDE.CL IN REACH.
--- NOTE | 2017-09-08 14:45 | NUR ---
AWAKENED FROM NAPPING;NOTED CONFUSION AND SOME GARBBLED LANGUAGE;CLEARING UP.SPEECH THERAPY ASSISTING.IN WC.PLACE AT NURSE YUE DUE TO CLIMBING OOB.ALARMS ON.
--- NOTE | 2017-09-08 15:41 | NUR ---
CARE TEAM MEETING: PATIENT NEW TO UNIT AND WILL BE RA AT NEXT MEETING. WILL CONTINUE TO FOLLOW WITH PATIENT AND ASSIST WITH NEEDS.
--- NOTE | 2017-09-08 16:00 | NUR ---
PLACED BACK IN BED WITH ALARM ON.CL IN REACH.
--- NOTE | 2017-09-08 19:40 | NUR ---
PT. IN BED WITH HOB UP AT LEAST 30 DEGREES. ASSESSMENT COMPLETED. PT. HAVING MORE DIFFICULTY WITH WORD FINDING AND IS VERY FORGETFUL. CALL LIGHT WITHIN REACH.
[2017-09-08 20:00] VITALS: BP 135/52
--- NOTE | 2017-09-08 23:10 | NUR ---
PT. IN BED WITH HOB UP AT LEAST 30 DEGREES WITH EYES CLOSED AND RESP. EVEN. CALL LIGHT WITHIN REACH.
--- NOTE | 2017-09-09 03:05 | NUR ---
PT. IN BED WITH HOB UP AT LEAST 30 DEGREES. EYE CLOSED AND RESP. EVEN. CALL LIGHT WITHIN REACH.
--- NOTE | 2017-09-09 03:30 | NUR ---
PT. UP TO BR TO URINATE. URINE YELLOW IN COLOR. NO RED OR PINK TINGED URINE.
[2017-09-09 08:11] VITALS: BP 127/62
--- NOTE | 2017-09-09 13:39 | NUR ---
RECIEVED UP IN THERAPY. PLEASANT AND CONFUSED. UP IN BED AND REFUSED LUNCH. THERAPY MAKING A COKE FLOAT FOR HER. CAREGIVER AT BEDSIDE AND ENCOURAGING HER TO EAT. DENIES ANY PAIN OR DISCOMFORT. CALL LIGHT IN REACH.
--- NOTE | 2017-09-09 19:25 | NUR ---
PT. IN BED WITH HOB UP FOR COMFORT. ASSESSMENT COMPLETED. PT. MORE CONFUSED THEN WHAT SHE WAS LAST NIGHT. ATTEMPTED TO RE-ORIENT AND UNSUCCESSFUL. WILL CONTINUE TO TRY THRU OUT SHIFT. ASSISTED PT. TO BATHROOM SHE HAD CLIMBED OUT OF BED FROM BETWEEN THE RAILINGS THAT WERE UP AND SET OFF THE BED ALARM, ALL AFTER I HAD JUST WALKED OUT OF HER ROOM. PT. VERY HARD TO DIRECT WHERE SHE NEEDED TO GO. GOT PT. IN BATHROOM, CHANGED BRIEF IT HAD SMALL AMOUNT OF STOOL SOILING, BACK TO BED AND POSITIONED TO COMFORT. PT. WAS ABLE TO REMEMBER BY NAME FROM TAKING CARE OF HER BEFORE. I REASSURED HER THAT I WAS HER NURSE AGAIN TONIGHT AND THAT I WOULD BE TAKING CARE OF HER AND SHE NEEDED TO TAKE A NAP. CALL LIGHT WITHIN REACH.
[2017-09-09 19:55] VITALS: BP 101/59
--- NOTE | 2017-09-09 23:08 | NUR ---
PT. IN BED WITH HOB UP FOR COMFORT. EYES OPEN AND SHE IS JUST LYING THERE QUIETLY. CALL LIGHT WITHIN REACH.
--- NOTE | 2017-09-10 03:05 | NUR ---
PT. IN BED WITH HOB UP FOR COMFORT WITH EYES CLOSED AND RESP. EVEN. PT. AWAKENS EASILY AND DENIES ANY NEEDS AT THIS TIME. CALL LIGHT WITHIN REACH. INSTRUCTED PT. THAT SHE NEEDS TO REST SOME MORE IT WAS ONLY 3A.M. PT. ACKNOWLEDGED UNDERSTANDING AND SAID SHE WOULD GO BACK TO SLEEP.
[2017-09-10 07:06] LABS: BASOPHILS 0 % (0-2); EOSINOPHILS 0.7 % (0-7); HEMOGLOBIN 10.6 g/dL (12-16); IMMATURE GRANULOCYTES 0.3 % (0-5); LYMPHOCYTES 9.7 % (15-50); MCH 30.1 pg (26.0-34.0); MCHC 32.1 g/dL (31.0-37.0); MCV 93.8 fL (80.0-100.0); MONOCYTES 16.9 % (2-11); NEUTROPHILS 72.4 % (40-80); PLATELET COUNT 265 10x3/uL (130-400); RBC 3.52 10x6/uL (4.00-5.40); RDW 14.4 % (11.5-14.5); WBC 10.9 10x3/uL (4.8-10.8)
[2017-09-10 07:27] LABS: CALC OSMOLALITY 272 mosm/kg (275-300); CARBON DIOXIDE 28.9 mmol/L (21.0-32.0); CHLORIDE - SERUM 100 mmol/L (98-107); CREATININE - SERUM 0.6 mg/dL (0.6-1.3); GLUCOSE 102 mg/dL (74-106); POTASSIUM - SERUM 3.8 mmol/L (3.5-5.1); SODIUM 136 mmol/L (136-145); UREA NITROGEN 14 mg/dL (7-18); eGFR NON AFRICAN AMERICAN > 90 mL/min (90-120)
--- NOTE | 2017-09-10 08:00 | NUR ---
PATIENT IS VERY CONFUSED. BED/CHAIR ALARM ON AT ALL TIMES. ROOM BY NURSINGS STATION. CALL LIGHT WITHIN REACH
[2017-09-10 08:36] VITALS: BP 147/48
--- NOTE | 2017-09-10 09:51 | NUR ---
PATIENT DOWN IN REHAB ROOM. WORKING WITH OCCUPATIONAL THERAPIST. DENIES ANY PAIN/DISC AT THIS TIME
--- NOTE | 2017-09-10 13:08 | NUR ---
CAREGIVER IN ROOM. THIS NURSE AND CASEMANAGER IN ROOM. TALKED TO CAREGIVER ABOUT HOW PATIENT WAS REFUSING THERAPY
--- NOTE | 2017-09-10 17:25 | NUR ---
PATIENT HAS CAR DETAILER IN ROOM AT THIS TIME.
--- NOTE | 2017-09-10 17:30 | NUR ---
SITTING UP EATING.
[2017-09-10 19:34] VITALS: BP 129/57
--- NOTE | 2017-09-10 19:34 | NUR ---
RECIEVED LAYING IN BED WITH EYES OPEN. ALERT AND ORIENTED TO PERSON ONLY. PLEASANT AND COOPERATIVE. HOB ELEVATED TO 30 DEGREES. SIDERAILS UP X3. CALL LIGHT IN REACH AND BED ALARM IN PLACE AND FUNCTIONING PROPERLY.
--- NOTE | 2017-09-11 00:01 | NUR ---
RESTING IN BED WITH EYES CLOSED. N OS/S OF DISTRESS OBSERVED. CALL LIGHT IN REACH.
--- NOTE | 2017-09-11 02:09 | NUR ---
ATTEMPTED TO GET OOB EARLIER AND ALARM SOUNDED. ABLE TO REACH PT BEFORE SHE GOT OOB. ASSISTED TO TOILET AND BACK TO BED. SEVERAL ATTEMPTS MADE TO ORIENT PT TO CALL LIGHT AND UNSUCESSFUL. CALL LIGHT AND OVERBED TABLE IN REACH.
--- NOTE | 2017-09-11 07:40 | NUR ---
SITTING UP IN BED ASSISTED WITH BREAKFAST. PT REQUESTED SCRAMBLED EGGS FOR BREAKFAST ORDER WAS PLACED. DENIES ANY PAIN. ALERT AND ORIENTED X2. NO S/SX OF ACUTE DISTRESS NOTED. CALL LIGHT AND PERSONAL ITEMS WITHIN REACH, BED LOW AND ALARM ON. WILL CONTINUE TO MONITOR
[2017-09-11 08:33] VITALS: BP 113/51
--- NOTE | 2017-09-11 09:10 | NUR ---
ADMINISTERED MORNING MEDS WITHOUT DIFFICULTY. NO S/SX OF ACUTE DISTRESS. ASSISTED WITH AMBULATING TO RESTROOM AND BACK TO BED WITH MIN ASSIST. CALL LIGHT AND WATER WITHIN REACH, BED LOW AND ALARM ON. WILL CONTINUE TO MONITOR
[2017-09-11 19:38] VITALS: BP 141/50
--- NOTE | 2017-09-11 19:52 | NUR ---
RECIEVED UP IN BED WITH EYES OPEN. C/O LEFT EYE INFECTION. NOTE LEFT FOR MD TO ASSESS. EYE IS ABDIRAHMAN AND PT STATES ITS PAINFUL. ASSISTED TO TOILET WITH MIN ASSIST. USES WALKER TO AMBULATE TO TOILET. CALL LIGHT IN REACH.
--- NOTE | 2017-09-11 20:00 | NUR ---
NOTIFIED DR. MARINO OF LEFT EYE REDDNESS ANF C/O OF PAIN. N.O FOR CORTISPORN 1 GTT Q 6 HRS. NOTIFIED LOKESH DANIEL OF NEW ORDER AND PT C/O FEELING LONLEY AND HE STATED "WE ALL ARE".
--- NOTE | 2017-09-11 23:39 | NUR ---
RESTING IN BED WITH EYES CLOSED. NO S/S OF DISTRESS OBSERVED. HOB ELEVATED TO 30 DEGREES. CALL LIGHT IN REACH.
--- NOTE | 2017-09-12 04:46 | NUR ---
PT HAD A INCONTINENT EPISODE. ASSISTED TO B/R AND CLEANED UP AND CLOTHES CHANGED. " STATED YOU KNOW I'M AN OLD LADY". PLEASANT AND TALKATIVE. BED CHANGED AND ASSISTED BACK TO BED. CALL LIGHT IN REAC AND REEDUCATED TO USE CALL LIGHT FOR ASSISTANCT TO THE B/R.
[2017-09-12 08:41] VITALS: BP 154/61
--- NOTE | 2017-09-12 11:23 | NUR ---
LYING IN BED EYES CLOSED RESTING. APPROPRIATE RISE AND FALL OF CHEST. NO S/SX OF ACUTE DISTRESS NOTED. CALL LIGHT AND WATER WITHIN REACH, BED LOW AND ALARM ON. WILL CONTINUE TO MONITOR
--- NOTE | 2017-09-12 14:01 | NUR ---
PT RESTING IN ROOM, DENIES NEEDS. WCTM.
--- NOTE | 2017-09-12 16:06 | NUR ---
SITTING UP IN BED LOOKING AT TV. DENIES ANY NEEDS OR PAIN. CALL LIGHT AND PERSONAL ITEMS WITHIN REACH, BED LOW AND ALARM ON. WILL CONTINUE TO MONITOR
[2017-09-12 19:56] VITALS: BP 118/48
--- NOTE | 2017-09-12 21:52 | NUR ---
RECIEVED UP IN BED WITH EYES OPEN AND TV ON. ALERT AND ORIENT TO PERSON AND PLACE. ABLE TO VOICE NEEDS. STITCHES TO RIGHT SIDE OF HEAD INTACT. NO REDNESS, SWELLING OR DRAINAGE TO SITE. OPEN TO AIR AT THIS TIME. HOB ELEVATED TO 30 DEGREES PER MD ORDER. CALL LIGHT AND OVER BED TABLE IN REACH.
--- NOTE | 2017-09-13 03:01 | NUR ---
RESTING IN BED WITH EYES CLSOED. NO S/S OF DISTRESS OBSERVED. O2@2LITERS PER N/C IN PLACE. ASSISTED TO TOILET AND BACK TO BED.CALL LIGHT AND OVERBED TABLER IN REACH.
[2017-09-13 07:21] LABS: BASOPHILS 0.1 % (0-2); HEMATOCRIT 29.3 % (36.0-48.0); HEMOGLOBIN 9.4 g/dL (12-16); IMMATURE GRANULOCYTES 0.4 % (0-5); LYMPHOCYTES 21.2 % (15-50); MCH 30.4 pg (26.0-34.0); MCHC 32.1 g/dL (31.0-37.0); MCV 94.8 fL (80.0-100.0); MEAN PLATELET VOLUME 10.3 fL (7.4-10.4); MONOCYTES 25.9 % (2-11); NEUTROPHILS 51.4 % (40-80); PLATELET COUNT 318 10x3/uL (130-400); RBC 3.09 10x6/uL (4.00-5.40); RDW 14.6 % (11.5-14.5); WBC 6.8 10x3/uL (4.8-10.8)
[2017-09-13 07:40] LABS: CALC OSMOLALITY 270 mosm/kg (275-300); CALCIUM 8.3 mg/dL (8.5-10.1); CARBON DIOXIDE 30.6 mmol/L (21.0-32.0); CHLORIDE - SERUM 99 mmol/L (98-107); CREATININE - SERUM 0.7 mg/dL (0.6-1.3); GLUCOSE 90 mg/dL (74-106); POTASSIUM - SERUM 4.4 mmol/L (3.5-5.1); SODIUM 135 mmol/L (136-145); UREA NITROGEN 14 mg/dL (7-18); eGFR NON AFRICAN AMERICAN 84 mL/min (90-120)
[2017-09-13 09:52] VITALS: BP 128/50
--- NOTE | 2017-09-13 10:34 | NUR ---
SITTING UP IN BED. BED AND CHAIR ALARM ARE IN PLACE. DENIES PAIN.
--- NOTE | 2017-09-13 16:10 | NUR ---
RESTING QUIETLY IN BED. EYES CLOSED. CALL LIGHT IN REACH. BED IN LOWEST POSITION
--- NOTE | 2017-09-13 19:30 | NUR ---
PT. IN BED WITH HOB UP AT LEAST 30 DEGREES. PT. REMEMBERS ME FROM TAKING CARE OF HER BEFORE. ASSESSMENT COMPLETED. PT. STILL ALERT BUT ONLY ORIENTED TO PERSON AND SITUATION. ATTEMPTED TO RE-ORIENT TO TIME AND PLACE BUT SHE CONTINUES TO SELECT THE SAME WRONG ANSWERS; 2018 [facility]. THESE WERE THE SAME WRONG ANSWERS WHEN SHE WAS ADMITTED ON THE . WILL CONTINUE TO RE-ORIENT. CALL LIGHT WITHIN REACH AND RE-INSTRUCTED PT. THAT SHE MUST HAVE ASSISTANCE TO GET OOB AND NOT TO BE UP BY HERSELF. PT. ABLE TO REPEAT THESE INSTRUCTIONS 100%.
--- NOTE | 2017-09-13 19:35 | NUR ---
HAD NO LONGER LEFT ROOM THAT PT'S BED ALARM IS GOING OFF AND PT. GETTING OOB BY HERSELF TO GO TO BR TO URINATE. ASSISTED PT. TO BATHROOM AND BACK TO BED AND RE-INSTRUCTED PT. ON USE OF CALL LIGHT FOR HER SAFETY. PT. STATED, "WHEN I GOT TO GO, I GOT TO GO". REMINDED PT. SHE HAD ON A BRIEF IF SHE HAPPENED TO URINATE A LITTLE BEFORE SHE GOT ASSISTANCE AND PT. SAID, "OH YEAH".
[2017-09-13 21:42] VITALS: BP 122/54
--- NOTE | 2017-09-13 23:10 | NUR ---
PT. IN BED WITH HOB UP AT LEAST 30 DEGREES AT ALL TIMES WITH EYES CLOSED AND RESP. EVEN. CALL LIGHT WITHIN REACH.
--- NOTE | 2017-09-14 03:08 | NUR ---
PT. IN BED WITH HOB UP FOR COMFORT. EYES CLOSED AND RESP. EVEN. CALL LIGHT WITHIN REACH.
--- NOTE | 2017-09-14 07:52 | NUR ---
SITTING UP IN BED EATING BREAKFAST. ALERT AND ORIENTED X3. DENIES ANY PAIN OR NEEDS. NO S/SX OF ACUTE DISTRESS NOTED. CALL LIGHT AND WATER WITHIN REACH, BED LOW AND ALARM ON. WILL CONTINUE TO MONITOR
--- NOTE | 2017-09-14 10:01 | NUR ---
IN ROOM SITTING UP IN W/C PERFORMING PT WITH REYES. NO S/SX OF ACUTE DISTRESS NOTED. WILL CONTINUE TO MONITOR
[2017-09-14 10:30] VITALS: BP 111/45
--- NOTE | 2017-09-14 12:07 | NUR ---
Nutrition Follow Up: Pt stated that her appetite is good. She said that she is eating well and drinking Boost. Pt is eating 28% meal avg on a regular diet. She is receiving Boost TID. +BM 09/08/17. Meds and labs reviewed. Rec continue current diet, supplement regimen. RD following.
--- NOTE | 2017-09-14 12:54 | NUR ---
SITTING UP IN BED HOB 45 DEGREES. NO S/SX OF ACUTE DISTRESS NOTED. DENIES ANY NEEDS OR PAIN. CALL LIGHT AND PERSONAL ITEMS WITHIN REACH, BED ALARM ON AND BED IN LOWEST POSITION. WILL CONTINUE TO MONITOR
--- NOTE | 2017-09-14 14:15 | NUR ---
RESTING QUIETLY IN BED.
--- NOTE | 2017-09-14 15:08 | NUR ---
LYING IN BED LOOKING AT TV. DENIES ANY PAIN OR NEEDS. CALL LIGHT AND PERSONL ITEMS WITHIN REACH, BED LOW AND ALARM ON. WILL CONTINUE TO MONITOR
--- NOTE | 2017-09-14 17:08 | NUR ---
LYING IN BED EYES CLOSED RESTING. NO S/SX OF RESPIRATORY DISTRESS NOTED. CALL LIGHT AND PERSONAL ITEMS WITHIN REACH, BED LOW AND ALARM ON. WILL CONTINUE TO MONITOR
--- NOTE | 2017-09-14 19:30 | NUR ---
PT. IN BED WITH HOB UP FOR COMFORT AND REMEMBERS ME. PT. NOW ORIENTED TO TIME WITHOUT ANY PROBLEMS. ASSESSMENT COMPLETED. PT. CONTINUES TO BE IMPULSIVE ABOUT GOING TO THE BR AND WILL NOT CALL FOR ASSISTANCE AND CONTINUES TO GET UP OOB AND GOES TO BR WITH HER WALKER FREQUENTLY. DAY SHIFT REPORTS SHE WENT AT LEAST 10 TIMES TODAY. INSTRUCTED PT. SHE WAS GOING TO HAVE TO TRAIN HER BLADDER SO THAT SHE CAN HOLD AND WAIT AT LEAST EVERY 2 HOURS. PT. STATED THAT SHE WAS LEAVING HERE WEDNESDAY AND SHE CAN DO WHAT EVER SHE WANTS. RE-INSTRUCTED PT. ON THE SAFETY MEASURES THE REHAB UNIT HAS AND IT IS IN HER BEST INTEREST TO ALWAYS FOLLOWS THOSE SAFETY MEASURES. PT. STATES SHE WILL. CALL LIGHT WITHIN REACH.
[2017-09-14 19:50] VITALS: BP 122/70
--- NOTE | 2017-09-14 23:13 | NUR ---
PT. IN BED WITH HOB UP AT LEAST 30 DEGREES AT ALL TIMES. EYES CLOSED AND RESP. EVEN. PT. HAS GOTTEN UP AND OUT OF BED BEFORE STAFF CAN GET TO HER WHEN BED ALARM IS GOING OFF AND PT. IS ALREADY IN THE BR. PT. REFUSES TO USE CALL LIGHT TONIGHT FOR ASSISTANCE. PT. HAS BEEN REPEATEDLY INSTRUCTED ON SAFETY AND SHE CAN REPEAT IT AND VOICE 100% UNDERSTANDING, BUT STILL REFUSES TO CALL FOR ASSISTANCE. CALL LIGHT WITHIN REACH.
--- NOTE | 2017-09-15 03:08 | NUR ---
PT. IN BED WITH HOB UP AT LEAST 30 DEGREES AT ALL TIMES. EYES CLOSED AND RESP. EVEN. CALL LIGHT WITHIN REACH.
--- NOTE | 2017-09-15 07:11 | NUR ---
SITTING UP IN BED LOOKING AT TV. DENIES ANY NEEDS OR PAIN. ALERT AND ORIENTED X3. NO S/SX OF ACUTE DISTRESS NOTED. CALL LIGHT AND PERSONAL ITEMS WITHIN REACH, BED LOW AND ALARM ON. WILL CONTINUE TO MONITOR
--- NOTE | 2017-09-15 08:01 | NUR ---
PT UP EATING BREAKFAST, DENIES NEEDS. WCTM.
[2017-09-15 09:01] VITALS: BP 123/54
--- NOTE | 2017-09-15 09:47 | NUR ---
REFERRAL HAS BEEN FAXED TO [facility] FOR POSSIBLE ADMISSION
--- NOTE | 2017-09-15 10:05 | NUR ---
SITTING UP IN BED LOOKING AT TV. C/O OF GENERALIZED PAIN 03/29 ADMINISTERED 50MG ULTRAM PER PT REQUEST. CALL LIGHT AND WATER WITHIN REACH, BED LOW AND ALARM ON. WILL CONTINUE TO MONITOR
--- NOTE | 2017-09-15 16:27 | NUR ---
PATIENT WAS ADMITTED TO REHAB FROM ACUTE FLOOR. DR. LOUIS IS HER PCP. WHEN DISCHARGED SHE WILL NEED AN APPOINTMENT WITH DR. DAWSON. SHE RESIDES AT [facility] AND HAS CAREGIVERS. WILL CONTINUE TO FOLLOW WITH PATIENT AND ASSIST WITH DISCHARGE NEEDS.
--- NOTE | 2017-09-15 17:15 | NUR ---
LITZY REMOVED PER ORDER FROM LEFT SIDE OF HEAD WO DIFFICULTY. 7 LITZY REMOVED. INCISION WELL APPROXIMATED.
--- NOTE | 2017-09-15 19:00 | NUR ---
PATIENT WAS GIVEN ULTRAM 50MG PO FOR PAIN AT 1953. PATIENT HAS NO OTHER C/O EXCEPT FOR WAITING FOR IT TO TAKE EFFECT.
[2017-09-15 21:15] VITALS: BP 129/63
--- NOTE | 2017-09-15 21:15 | NUR ---
ASSESSMENT AND HS MEDS COMPLETE. DENIES PAIN. ASSISTED HER UP TO BR COMMODE TO URINATE.
--- NOTE | 2017-09-15 22:05 | NUR ---
RESTING QUIETLY, EYES CLOSED.
--- NOTE | 2017-09-15 23:00 | NUR ---
SET OFF XIAO ALARM. WAS ASSISTED UP TO BR COMMODE BY LAINE CHUNG
--- NOTE | 2017-09-16 00:10 | NUR ---
RESTING QUIETLY IN BED. APPEARS COMFORTABLE.
--- NOTE | 2017-09-16 02:20 | NUR ---
IN BED, EYES CLOSED. RESTING QUIETLY, HOB UP 30 DEGREES.
--- NOTE | 2017-09-16 04:10 | NUR ---
IN BED AFTER BEING UP TOILETING AROUND 0345.
--- NOTE | 2017-09-16 06:20 | NUR ---
RESTING IN BED, EYES CLOSED AFTER ASSIST TO BR TO URINATE & SET-UP TO DRESS HERSELF, WHICH SHE HAS SINCE ACCOMPLISHED.
--- NOTE | 2017-09-16 07:20 | NUR ---
RESTING QUIETLY IN BED. CALL LIGHT IN REACH. BED IN LOWEST POSITION.
--- NOTE | 2017-09-16 08:00 | NUR ---
DR GEORGE MARINO INTO SEE PATIENT. NEW ORDERS FOR DISCHARGE TO [facility].
[2017-09-16 08:16] VITALS: BP 128/67
--- NOTE | 2017-09-16 09:34 | NUR ---
PATIENT DISCHARGING TO [facility] NO DME OR HOME HEALTH NEEDED AT THIS TIME. AN APPOINTMENT WITH DR. LOUIS WILL BE MADE AT TIME OF DISCHARGE FROM FACILITY. DR. DAWSON OFFICE CLOSED DUE TO HOLIDAY. FACILITY WILL CALL AND MAKE A FOLLOW UP APPOINTMENT . PATIENT CHOICE FORM FOR SNF AND [facility] FORM SIGNED, EXPLAINED AND FILED IN CHART. NURSE TO CALL REPORT. F[facility]ILITY [facility] WILL BE HERE AT 11:00 FOR TRANSPORTATION
--- NOTE | 2017-09-16 11:24 | NUR ---
DISCHARGE INSTRUCTIONS GIVEN TO PATIENT.
--- NOTE | 2017-09-16 11:50 | NUR ---
[facility] HERE TO TRANSPORT PATIENT TO FACILITY. REPORT CALLED TO AZUCENA HOYT AT FACILITY
--- NOTE | 2017-10-28 14:37 | DS ---
PATIENT:HERBERT HAUSER :31 MEDICAL RECORD: [id number] DISCHARGE SUMMARY ADMISSION DATE: 09/05/17 DISCHARGE DATE: 09/16/17 This is a discharge dated 09/16/2017 from inpatient rehab. PRIMARY DIAGNOSIS: Decreased functional ability and ability to provide activities of daily living secondary to a subdural hematoma. SECONDARY DIAGNOSES: 1. Dementia. 2. Sjogren disease. 3. Hypokalemia. 4. Hyponatremia. 5. Dysphagia. 6. Anemia. HOSPITAL COURSE: Full H&P is located elsewhere on the chart on this 82-year-old female who was admitted to inpatient rehab for physical therapy and occupational therapy to improve gait, transfer skills, bed mobility, and activities of daily living to a modified independent level. She was evaluated by PT and OT and their plans of care were followed. She required care home care for observation and assessment and medication administration. She was also seen by speech therapy for management of dysphagia. Electrolytes were managed by protocol. She continued on appropriate home medications. She did have bladder training with subsequent removal of her Alvares catheter. She was cooperative with therapies, progressing towards goals. Case management was involved for discharge planning. She was considered stable for discharge on 09/16/2017. DISCHARGE MEDICATIONS: As per discharge medication reconciliation. DISCHARGE DISPOSITION: The patient is discharged to [facility] where she will continue PT and OT as well as speech therapy. She will continue her current diet and level of activity and she will follow up with the primary physician at the long term and will follow with specialists as directed. At least 30 minutes was spent in this discharge activity. TRANSINT:[id number] Voice Confirmation ID: [id number] DOCUMENT ID: [id number] Dictated By: DINORAH RAMSEY I have interviewed/examined the above patient and agree with these documented findings. GEORGE MARINO MD at 1802 at 1437 CC: [id number] DICTATION DATE: 10/24/17 1510 FILL TECHNICIAN: 10/25/17 0159 DIS IN 09/16/17 [facility] [address] [place] [address]
== END 2017-09-16 11:53 | DRG 83 ==
LOC: D.REHAB 18:45 → UNDOADMIN 18:45 → D.REHAB 19:45
PROVIDERS: ADMIT Emergency Medicine
DX: S06.5X9A Traumatic subdural hemorrhage with loss of consciousness of unspecified duration, initial encounter (principal); E87.1 Hypo-osmolality and hyponatremia; W19.XXXA Unspecified fall, initial encounter; M35.00 Sjogren syndrome, unspecified; F03.90 Unspecified dementia, unspecified severity, without behavioral disturbance, psychotic disturbance, mood disturbance, and anxiety; R41.89 Other symptoms and signs involving cognitive functions and awareness

== ENCOUNTER 2017-11-25 14:10 | Inpatient (IN) | payer MEDICARE ==
[~2017-11-25] VITALS: Ht 162.6 cm; Wt 41.7 kg
[2017-11-25] VITALS (10 sets, daily range): BP systolic 116–140; BP diastolic 55–78; BMI 18.4
--- NOTE | ~2017-11-25 | HP ---
PATIENT: HERBERT HAUSER MEDICAL RECORD: [id number] ACCOUNT: [id number] LOCATION:[address] : 31 ADMISSION DATE: 11/25/17 HISTORY AND PHYSICAL EXAMINATION HISTORY OF PRESENT ILLNESS: An 82-year-old female with a history of intracranial bleed back in August. Actually has been discharged from rehab, doing fairly well, reported to a family member she has been having chest pain radiating to the jaw and neck, was transported urgently to the ER. She has been found to have anterior myocardial infarction and brought to the [facility] tube assembler on an urgent basis. PAST MEDICAL HISTORY: Includes history of intracranial bleed, otherwise no significant past medical history. ALLERGIES: None known. SOCIAL HISTORY: Recently discharged from rehabilitation. She is a nonsmoker. PHYSICAL EXAMINATION: GENERAL: Pleasant female, in mild to moderate distress. VITAL SIGNS: Blood pressure 116/64, pulse 84 and regular. HEENT: Normocephalic, atraumatic. NECK: No bruits. HEART: Regular. LUNGS: Fair air excursion. ABDOMEN: Soft, nontender. EXTREMITIES: Pulses 2+. There is no edema. IMPRESSION: Acute anterior myocardial infarction, to the lab on an urgent basis. TRANSINT:[id number] Voice Confirmation ID: [id number] DOCUMENT ID: [id number] KIRSTEN MEDRANO MD at 1341 CC: [id number] DICTATION DATE: 12/02/17 1120 COOK HELPER MEAT: 12/02/17 1140 DIS IN 11/27/17 [place] [address]
--- NOTE | ~2017-11-25 | OP ---
PATIENT NAME: HERBERT HAUSER MEDICAL RECORD: [id number] :31 LOCATION:[facility] ADMISSION DATE:11/25/17 SURGEON: KIRSTEN MEDRANO MD DATE OF OPERATION: 11/25/2017 [facility] STENT REPORT WELL CATHETERIZATION REPORT PROCEDURE: Left heart catheterization, selective coronary angiography, and right femoral artery approach. CATHETERS: A 5-Romansh sheath, 5/4 left and right Anahi, 5/4 pig. The procedure was well tolerated. The patient returned to the galicia, sheath removed. ExoSeal device placed. FINDINGS: Left ventriculography shows a mid anteroapical and inferoapical hypokinesis, although LV function is reduced 25%. CORONARY ANATOMY: 1. Left main: Left main is free of disease. 2. LAD has an ostial stenosis with some thrombus burden present of greater than 99%. 3. Circumflex: Left dominant system, free of disease. 4. Right coronary artery has a 90% stenosis. This is a nondominant system. 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 PLAN: Intervention momentarily. DESCRIPTION OF PROCEDURE: Using an indwelling 6-Romansh sheath, A JL4 guiding catheter provided excellent guide catheter support followed by a 300 cm Whisper wire, which was placed across the ostial stenosis and extended down to the midportion of the vessel. Pre-deployment balloon was a 3.0 x 12 [place]. Stent deployed were a 3.5 x 22 mm Integrity nondrug-eluting stent to 14 atmospheres and more at the ostial lesion a 3.5 x 12 mm nondrug-eluting stent at 14 atmospheres. Final angiography shows excellent resolution of 99% stenosis, no significant residual. ADRIENNE flow was 3 throughout the procedure and Integrilin was used during the case. Sheath closed with ExoSeal device. TRANSINT:[id number] Voice Confirmation ID: [id number] DOCUMENT ID: [id number] KIRSTEN MEDRANO MD at 1231 CC: [id number] DICTATION DATE: 11/25/17 1526 ENGINEER THIRD ASSISTANT: 11/25/17 1656 [place] [address]
--- NOTE | ~2017-11-25 | HEMODYNAMI ---
PATIENT:HERBERT HAUSER MEDICAL RECORD: [id number] : 31 LOCATION:[place] [address] ADMISSION DATE: 11/25/17 Generatedon:11/25/201717:14 Patient name: HERBERT HAUSER Patient #: [id number] SSN: : Date of study: 11/25/2017 Page: Of Hemodynamic Procedure Report Patient Data Patient Demographics Procedure consent was obtained First Name: HERBERT Gender: Female Last Name: ANALISA : 1935 Patient #: [id number] Age: 82 year(s) Race: Unknown Additional ID: [id number] Contact details [address]: [address] [place] [address] State: [place] City: [facility] Zip code: [address] Past Medical History Allergies: No known allergies Admission Admission Data Admission Date: 11/25/2017 Admission Time: 14:10 Room #: [facility] Procedure Procedure Types Cath Procedure Diagnostic Procedure Sedation Charges Moderate Sedation up to 15 minutes [facility] w/Coronaries PCI Procedure AMI/SVG/ART STUDIO TEACHER PTCA or Stent AMI-BMS/ANIL Initial Procedure Description Procedure Date Procedure Date: 11/25/2017 Procedure Start Time: 14:50 Procedure End Time: 17:13 Procedure Staff Name Function Thaddeus Sanchez MD Performing Physician Rosalia De Leon RT Monitor Michelle Tucker RN Nurse Sandra Pablo RT Scrub Procedure Data Cath Procedure Fluoroscopy Diagnostic fluoroscopy Total fluoroscopy Time: 8.5 time: 8.5 min min Diagnostic fluoroscopy Total fluoroscopy dose: 342 dose: 342 mGy mGy Contrast Material Contrast Material Type Amount (ml) Isovue 300 124 Entry Location Entry Primary Successful Side Size Upsize Upsize Entry Closure Succes sful Closure Location (Fr) 1 (Fr) 2 (Fr) Remarks Device Remarks Femoral Right 6 Fr Exoseal artery Short Estimated blood loss: 10 ml Diagnostic catheters Device Type Used For End Catheter Placement MULTIPACK JL 4.0 5Fr Left Coronary catheter Angiography MULTIPACK 3DRC 5Fr Right Coronary catheter Angiography MULTIPACK Pigtail 5 Fr LV Angiography catheter Procedure Complications No complications Procedure Medications Medication Administration Route Dosage Oxygen NC 2 l/min Lidocaine 2% added to field 20 Heparin Flush Bag added to field 2 bags (1000units/500ml NS) 0.9% NaCl I.V. 100 ml/hr Versed I.V. 0.5 mg Fentanyl I.V. 25 mcg Integrilin (Bolus I.V. 4 ml 2mg/ml) Integrilin (Bolus wasted 6 ml 2mg/ml) Plavix P.O. 300 mg Hemodynamics Rest Heart Rate: 72 (bpm) Pressure Samples Time Site Value (mmHg) Purpose Heart Use Rate(bpm) 15:12 LV 164/11,15 Snapshot 72 15:12 AO 160/72(111) Pullback 72 15:12 LV 131/14,11 Pullback 72 Gradients Valve Time Site 1 Site 2 Mean SEP/DFP Peak To Heart Use (mmHg) (sec/min) Peak Rate (mmHg) (bpm) Aortic 15:12 LV AO 0 72 131/14,11 160/72(111) Calculations Valve P-P Mean Valve Index Valve Source Name Gradient Area Flow (cm2) Aortic 0 0 Snapshots Pre Cath Intra NCS Post Cath Vital Signs Time Heart Resp SPO2 etCO2 NIBP (mmHg) Rhythm Pain Sedation Rate (ipm) (%) (mmHg) Status Level (bpm) 14:48:08 73 15 100 0 135/69(97) NSR 0 (11) 10(A) , No pain 14:52:46 73 14 99 0 136/71(96) NSR 0 (11) 10(A) , No pain 14:57:25 74 18 99 0 130/72(95) NSR 0 (11) 10(A) , No pain 15:02:04 74 18 100 0 128/64(95) NSR 0 (11) 10(A) , No pain 15:06:42 75 17 100 0 103/51(75) NSR 0 (11) 10(A) , No pain 15:11:48 77 15 100 0 155/76(116) NSR 0 (11) 10(A) , No pain 15:16:30 71 16 99 0 139/68(94) NSR 0 (11) 10(A) , No pain 15:21:09 72 16 99 0 133/64(92) NSR 0 (11) 10(A) , No pain 15:25:45 74 18 99 0 137/69(96) NSR 0 (11) 10(A) , No pain 15:30:22 78 18 99 0 132/79(108) NSR 0 (11) 10(A) , No pain 15:35:35 79 16 99 0 144/71(105) NSR 0 (11) 10(A) , No pain 15:40:14 78 17 100 0 136/74(100) NSR 0 (11) 10(A) , No pain 15:44:52 76 16 100 0 139/67(95) NSR 0 (11) 10(A) , No pain 15:49:31 79 16 100 0 139/63(96) NSR 0 (11) 10(A) , No pain 15:54:07 79 18 100 0 145/75(97) NSR 0 (11) 10(A) , No pain 15:58:46 79 16 100 0 147/75(93) NSR 0 (11) 10(A) , No pain 16:04:09 80 11 100 0 137/76(103) NSR 0 () 10(A) , No pain 16:08:46 80 14 100 0 142/80(110) NSR 0 (11) 10(A) , No pain 16:13:24 80 12 100 0 148/68(118) NSR 0 (11) 10(A) , No pain 16:18:05 78 11 100 0 141/71(96) NSR 0 (11) 10(A) , No pain 16:22:42 79 11 100 0 144/77(112) NSR 0 (11) 10(A) , No pain 16:27:24 79 10 100 0 141/77(96) NSR 0 (11) 10(A) , No pain 16:42:03 80 18 100 140/75(109) NSR 0 (11) 10(A) , No pain 16:56:42 81 15 100 134/73(99) NSR 0 (11) 10(A) , No pain 17:11:18 86 30 137/70(111) NSR 0 (11) 10(A) , No pain Medications Time Medication Route Dose Verified Delivered Reason Notes Effectiveness by by 14:50:52 Oxygen NC 2 Thaddeus Martinez used for l/min [facility] Tucker RN procedure MD 14:50:58 Lidocaine 2% added 20ml Thaddeus Travis for local to vial [facility] anesthetic field MD INIGUEZ 14:51:03 Heparin Flush added 2 Thaddeus Travis used for Bag to bags [facility] procedure (1000units/500ml field MD INIGUEZ NS) 14:51:12 0.9% NaCl I.V. 100 Thaddeus Martinez Per physician ml/hr [facility] Tucker RN, MD 14:51:20 Versed I.V. 0.5 Thaddeus Martinez for sedation mg [facility] Tucker RN, MD 14:51:25 Fentanyl I.V. 25 Thaddeus Bellaie for sedation mcg [facility] Tucker RN, MD 14:58:21 Integrilin I.V. 4 ml Thaddeus Martinez for wasted (Bolus 2mg/ml) [facility] Tucker RN anticoagulation 6 ml MD of vial 15:18:00 Integrilin wasted 6 ml Thaddeus Martinez for wasted (Bolus 2mg/ml) [facility] Tucker RN anticoagulation 6 ml MD of vial 15:18:55 Plavix P.O. 300 Thaddeus Martinez for mg [facility] Tucker RN antiplatelet therapy Procedure Log Time Note 14:25:47 Michelle Tucker RN sent for patient. Start room use. 14:31:28 Time tracking: Regular hours 14:31:33 Plan of Care:Hemodynamics will remain stable., Cardiac rhythm will remain stable., Comfort level will be maintained., Respiratory function will remain adequate., Patient/ family verbilizes understanding of procedure., Procedure tolerated without complication., Recovers from procedure without complications.. 14:38:40 Patient received from ED to CCL 1 Alert and oriented. Tansferred to table in Supine position. 14:38:41 Warm blankets applied, and hi hugger turned on for patient comfort. 14:38:42 Correct patient and procedure confirmed by team. 14:38:44 Signed procedure consent form obtained from patient. 14:38:44 ECG and BP/O2 sat monitors applied to patient. 14:47:16 Vital chart was started 14:47:23 Rhythm: sinus rhythm , w/ ST elevation 14:47:26 Full Disclosure recording started 14:47:30 H&P Date Dictated: 11/25/2017 ER History on chart.. 14:47:31 Pre-procedure instructions explained to patient. 14:47:32 Pre-op teaching completed and patient verbalized understanding. 14:47:33 Family in waiting room. 14:47:34 Patient NPO since Midnight. 14:47:40 Patient allergic to No known allergies 14:47:42 Is patient on blood thinner?No 14:47:46 ACC The patient was administered the following blood thiners within the last 24 hours: ACCPlavix 14:48:00 PATIENT LOADED ON 300MG PLAVIX IN ER 14:48:02 Patient diabetic? No. 14:48:04 Previous problem with sedation/anesthesia? No ? 14:48:07 Snore? No 14:48:09 Sleep apnea? No 14:48:10 Deviated septum? No 14:48:10 Opens mouth fully? Yes 14:48:11 Sticks out tongue? Yes 14:48:13 Airway obstruction? No ? 14:48:15 Dentures? No ? 14:48:17 Pre procedure: right dorsailis pedis pulse 1+ Palpable, but thready & weak; easily obliterated 14:48:19 Patient pain scale 0/10 ?. 14:48:24 IV patent on arrival in left hand with 0.9% NaCl at O. 14:48:26 Lab results completed and on chart. 14:48:30 Right groin area was prepped with chlora-prep and draped in sterile fashion 14:48:33 Alarms reviewed by R. N. 14:48:34 Sharps counted by scrub and verified by R.N. 14:48:37 Use device set Femoral Dx 14:49:38 Physician arrived 14:49:39 --------ALL STOP TIME OUT------ 14:49:40 Final Timeout: patient, procedure, and site verified with staff and physician. All members of the team are in agreement. 14:49:43 Right groin site verified by team. 14:49:46 Physical assessment completed. ASA score P 2 - A patient with mild systemic disease as per Thaddeus Sanchez MD. 14:49:50 Sedation plan: IV Moderate Sedation Medication:Versed, Fentanyl 14:49:57 Procedure started. 14:50:06 Local anesthetic to right femoral artery with Lidocaine 2% by Thaddeus Sanchez MD.INITIAL ACCESS ONLY 14:50:52 Oxygen 2 l/min NC was administered by Michelle Tucker RN; used for procedure; 14:50:58 Lidocaine 2% 20ml vial added to field was administered by Thaddeus Sanchez MD; for local anesthetic; 14:51:03 Heparin Flush Bag (1000units/500ml NS) 2 bags added to field was administered by Thaddeus Sanchez MD; used for procedure; 14:51:09 Zero performed for pressure channel P1 14:51:12 0.9% NaCl 100 ml/hr I.V. was administered by Michelle Tucker RN; Per physician; 14:51:20 Versed 0.5 mg I.V. was administered by Michelle Tucker RN; for sedation; 14:51:20 Zero performed for pressure channel P1 14:51:25 Fentanyl 25 mcg I.V. was administered by Michelle Tucker RN; for sedation; 14:51:40 A 6 Fr Short sheath was inserted into the Right Femoral artery 14:51:57 ACIST Syringe (30421) opened to sterile field. 14:51:58 Bag Decanter () opened to sterile field. 14:51:59 Medline Cath Pack ([id number]) opened to sterile field. 14:52:00 DIAGNOSTIC WIRE .035 260cm J wire (001165) opened to sterile field. 14:52:02 ACIST Hand Control (97596) opened to sterile field. 14:52:02 ACIST Manifold (29122) opened to sterile field. 14:52:03 DIAGNOSTIC Multipack 5Fr catheter set ([id number]) opened to sterile field. 14:52:04 Tegaderm 4 x 4 (1626W) opened to sterile field. 14:52:05 PERCUTANEOUS ENTRY 19GA needle opened to sterile field. 14:52:16 Use device set EHRHARDT PCI 14:52:19 SHEATH 6FR [place] (GSG071) opened to sterile field. 14:52:20 INFLATOR Merit BasixCompak (WF9850) opened to sterile field. 14:52:23 WHISPER 300cm guide wire ([id number]) opened to sterile field. 14:52:58 A MULTIPACK JL 4.0 5Fr catheter was advanced over the wire and used for Left Coronary Angiography. 14:54:11 Catheter removed. 14:54:25 A MULTIPACK 3DRC 5Fr catheter was advanced over the wire and used for Right Coronary Angiography. 14:56:03 Catheter removed. 14:56:50 GUIDE 6FR JL 4.0 SH catheter ([id number]) opened to sterile field. 14:58:21 Integrilin (Bolus 2mg/ml) 4 ml I.V. was administered by Michelle Tucker RN; for anticoagulation; wasted 6 ml of vial 14:58:40 6 Fr JL 4.0 SH guide catheter was inserted over the wire 14:58:44 WHISPER wire advanced. 15:00:49 Inflation number: 1 A EMERGE OTW 2.5 x 15 balloon ([id number]) was prepped and advanced across the Prox LAD, then inflated to 8 SUMIT for 0:08 (min:sec). 15:01:08 Inflation number: 2 The EMERGE OTW 2.5 x 15 balloon ([id number]) was reinflated across the Prox LAD, to 8 SUMIT for 0:06 (min:sec). 15:01:25 Inflation number: 3 The EMERGE OTW 2.5 x 15 balloon ([id number]) was reinflated across the Prox LAD, to 8 SUMIT for 0:06 (min:sec). 15:02:50 Balloon removed over the wire. 15:05:36 Inflation Number: 4 A INTEGRITY OTW 3.5 X 22 stent ([id number]) was prepped and advanced across the Prox LAD. The stent was deployed at 14 SUMIT for 0:20 (min:sec). 15:06:33 Stent catheter was removed intact over wire. 15:09:33 Inflation Number: 5 A INTEGRITY OTW 3.5 X 12 stent ([id number]) was prepped and advanced across the Prox LAD. The stent was deployed at 14 SUMIT for 0:18 (min:sec). 15:10:02 Stent catheter was removed intact over wire. 15:10:03 Wire removed. 15:10:03 Guide catheter removed. 15:10:16 A MULTIPACK Pigtail 5 Fr catheter was advanced over the wire and used for LV Angiography. 15:12:35 LV gram done using SOLIS 15:12:36 LV hemodynamics recorded. 15:12:39 Injector settings: Ml/sec: 10, Volume: 20, 15:12:45 EF : 25 % 15:12:50 Catheter removed. 15:13:01 Sheath removed intact; hemostasis achieved with Exoseal to the Right Femoral artery. 15:13:13 EXOSEAL 6Fr (EX600) opened to sterile field. 15:13:23 Procedure ended.(Physican Out) 15:13:36 Fluoroscopy time 08.50 minutes. 15:13:45 Flurop Dose total: 342 15:13:45 Fluoroscopy dose: 342 mGy 15:13:51 Contrast amount:Isovue 300 124ml. 15:13:52 Sharps counted by scrub and verified by R.N. 15:13:54 Insertion/operative site no bleeding no hematoma. 15:14:20 Post right femoral artery:stable, clean and dry 15:15:47 Post Procedure Pulses reassessed and unchanged 15:15:55 Post procedure: right dorsailis pedis pulse 2+ Normal; easily identifiable; not easily obliterated. 15:16:00 Post-procedure physical assessment completed. ASA score P 2 - A patient with mild systemic disease as per Thaddeus Sanchez MD. 15:16:24 Post procedure rhythm: sinus rhythm 15:16:26 Estimated blood loss: 10 ml 15:16:28 Post procedure instruction explained to patient.Patient verbalizes understanding. 15:16:28 Patient needs reinforcement of post procedure teaching. 15:16:40 Procedure type changed to Cath procedure, Diagnostic procedure, Sedation Charges, Moderate Sedation up to 15 minutes, LHC, C w/Coronaries, PCI procedure, AMI/SVG/ART STUDIO TEACHER PTCA or Stent, AMI-BMS/ANIL Initial 15:18:00 Integrilin (Bolus 2mg/ml) 6 ml wasted was administered by Michelle Tucker RN; for anticoagulation; wasted 6 ml of vial 15:18:55 Plavix 300 mg P.O. was administered by Michelle Tucker RN; for antiplatelet therapy; 15:25:43 Post right femoral artery:hematoma 15:25:50 Femstop placed over the right femoral artery at 150 mmHg. Hemostasis achieved. 15:25:55 FEMSTOP Gold ([id number]) opened to sterile field. 15:26:03 Procedure Complication : No complications 15:26:16 WAITING ON ICU BED 15:26:19 See physician's report for complete and final results. 15:28:17 Procedure and supply charges have been captured, reviewed, submitted and are correct. 16:08:58 patient transferred to off procedure table onto a bed. Still waiting for CVICU bed. 16:15:17 DAVID SAID PATIENT COULD GO TO CV01, BUT HAD TO TRANSFER PATIENT OUT FIRST. SHOULD TAKE ABO UT 30 MINUTES 16:19:48 FEMSTOP REMOVED. RFA HAS NO BLEEDING OR HEMATOMA. 16:20:08 PATIENT RESTING COMFORTABLY. 16:20:35 Post-op/insertion site Right Femoral artery dressed using a 4 x 4 and Tegaderm. 16:34:34 DAVID CALLED BACK AND TOLD US WE WOULDN'T BE ABLE TO TRANSFER TIL AFTER 5PM. PATIENT REMAINS IN PHYSICIAN/OPHTHALMOLOGIST PROCEDURE ROOM. 16:40:50 RT GROIN REMAINS INTACT, CLEAN AND DRY 17:13:33 Vital chart was stopped 17:13:35 Report given to CVICU. 17:13:38 Patient transfered to CVICU with Bed. 17:13:42 Procedure ended. 17:13:42 Full Disclosure recording stopped 17:13:46 End room use (Document Last) Intervention Summary Intervention Notes Time ActionType Lesion and Equipment Action# Pressure Duration Attributes Used 15:00:49 Inflate Prox LAD EMERGE OTW 1 8 00:08 balloon 2.5 x 15 balloon ([id number]) 15:01:08 Reinflate Prox LAD EMERGE OTW 2 8 00:06 balloon 2.5 x 15 balloon ([id number]) 15:01:25 Reinflate Prox LAD EMERGE OTW 3 8 00:06 balloon 2.5 x 15 balloon ([id number]) 15:05:36 Place stent Prox LAD INTEGRITY 4 14 00:20 OTW 3.5 X 22 stent ([id number]) 15:09:33 Place stent Prox LAD INTEGRITY 5 14 00:18 OTW 3.5 X 12 stent ([id number]) Device Usage Item Name Manufacture Quantity Catalog Number Hospital Part Current Min imal Lot# / Charge Number Stock Stock Serial# Code ACIST Acist 1 77997 581381 377271 774534 20 Syringe Medical (44391) Systems Inc Bag Decanter Microtek 1 008571 26613 315831 5 () Medical Inc. Medline Cath Cardinal 1 [id number] 480806 68625 083179 5 [place] ([id number]) DIAGNOSTIC [facility] Chaz 1 673254 766662 474807 320066 30 WIRE .035 260cm J wire (916093) ACIST Hand Acist 1 90402 654431 096663 812512 5 Control Medical (80650) Systems Inc ACIST Acist 1 71258 186009 286988 461085 5 Manifold Medical (79137) Systems Inc DIAGNOSTIC Cardinal 1 TX7167 249278 22561 585769 30 Multipack Health 5Fr catheter set (YA9839) Tegaderm 4 x 3M 1 1626W 339579 013368 371947 5 4 (1626W) PERCUTANEOUS [facility] 1 K47192 342146 119156 5 ENTRY 19GA needle SHEATH 6FR Terumo 1 AES617 404437 381184 910320 40 [place] (QEB814) INFLATOR Merit 1 OQ5694 480647 332449 880973 15 [facility] Medical BasixCompak (LP1673) WHISPER [place] 1 [id number] 335186 622103 723727 5 300cm guide Vascular wire ([id number]) MULTIPACK JL Cardinal 1 083654 5 4.0 5Fr Health catheter MULTIPACK Cardinal 1 636286 5 3DRC 5Fr Health catheter GUIDE 6FR JL Medtronic 1 [id number] 824859 30347 296706 1 4.0 SH catheter ([id number]) EMERGE OTW [place] 1 [id number] 792539 425433 893225 5 [id number] 2.5 x 15 Scientific balloon ([id number]) INTEGRITY Medtronic 1 [id number] 080167 698370 3 [id number] OTW 3.5 X 22 stent ([id number]) INTEGRITY Medtronic 1 [id number] 219813 794832 6 [id number] OTW 3.5 X 12 stent ([id number]) MULTIPACK Cardinal 1 907858 5 Pigtail 5 Fr Health catheter EXOSEAL 6Fr Cardinal 1 EX600 530044 346194 410100 10 (EX600) Health FEMSTOP Gold St Chaz 1 G84726 875520 177637 077880 5 (J44307) Signature Audit [place] Stage Time Signature Unsigned Intra-Procedure 11/25/2017 Rosalia 5:13:57 PM Counts RT(R) Signatures Monitor : Rosalia Signature : Counts RT Date : Time : [place] [address] [address] [place] [address]
[2017-11-25 14:26] LABS: HEMATOCRIT 32.6 % (36.0-48.0); HEMOGLOBIN 10.4 g/dL (12-16); MCH 29.5 pg (26.0-34.0); MCHC 31.9 g/dL (31.0-37.0); MCV 92.4 fL (80.0-100.0); MEAN PLATELET VOLUME 9.9 fL (7.4-10.4); PLATELET COUNT 259 10x3/uL (130-400); RBC 3.53 10x6/uL (4.00-5.40); WBC 4.8 10x3/uL (4.8-10.8)
[2017-11-25 14:40] LABS: ALBUMIN 3.2 g/dL (3.4-5.0); ANION GAP 12.8 mmol/L (8-16); BILIRUBIN - TOTAL 0.24 mg/dL (0.2-1.3); CALCIUM 8.8 mg/dL (8.5-10.1); CARBON DIOXIDE 28.1 mmol/L (21.0-32.0); CREATININE - SERUM 0.8 mg/dL (0.6-1.3); POTASSIUM - SERUM 3.9 mmol/L (3.5-5.1); PROTEIN - SERUM 7.7 g/dL (6.4-8.2)
[2017-11-25 14:57] LABS: TROPONIN-I 0.279 ng/mL (0.000-0.060)
[2017-11-25 15:16] LABS: EOSINOPHILS 1 % (0-7); LYMPHOCYTES 16 % (15-50); MONOCYTES 3 % (2-11); NEUTROPHILS 80 % (40-80); PLATELET ESTIMATE NORMAL; ROULEAUX 1+
[2017-11-25 15:18] LABS: CHOLESTEROL, TOTAL 156 mg/dL (0-200); CKMB 1.7 U/L (0.0-3.6); HDL CHOLESTEROL 52 mg/dL (32-96); LDL CHOLESTEROL 88 mg/dL (0-100); LDL-HDL RATIO 1.7 ratio (1.5-3.5); TRIGLYCERIDE 83 mg/dL (30-200)
[2017-11-26] VITALS (14 sets, daily range): BP systolic 102–128; BP diastolic 44–63; Ht 162.6 cm; Wt 41.7 kg
[2017-11-27 01:18] VITALS: BP 115/57
[2017-11-27 06:37] VITALS: BP 110/58
[2017-11-27] MEDS ORDERED: PLAVIX75 MG PO (07:26)
[2017-11-27 08:44] VITALS: BP 134/66
[2017-11-27 11:49] VITALS: BP 112/53
== END 2017-11-27 13:15 | disposition home or self-care (01) | DRG 249 ==
LOC: D.CATH 14:10 → D.ER 14:10 → EDSTATUS 14:55 → D.CVICU 17:10 → D.CATH 17:11 → D.CVICU 17:11 → D.M2 11-26 16:51
PROVIDERS: Emergency Medicine; Internal Medicine Interventional Cardiology
PROC: B2111ZZ Fluoroscopy of Multiple Coronary Arteries using Low Osmolar Contrast (ICD-10-PCS; 2017-11-25)
PROC: B2151ZZ Fluoroscopy of Left Heart using Low Osmolar Contrast (ICD-10-PCS; 2017-11-25)
PROC: 02703EZ Dilation of Coronary Artery, One Artery with Two Intraluminal Devices, Percutaneous Approach (ICD-10-PCS; principal; 2017-11-25 14:30)
PROC: 4A023N7 Measurement of Cardiac Sampling and Pressure, Left Heart, Percutaneous Approach (ICD-10-PCS; 2017-11-25 14:30)
DX: I21.9 Acute myocardial infarction, unspecified (principal); I25.10 Atherosclerotic heart disease of native coronary artery without angina pectoris

== ENCOUNTER → 2018-05-06 18:59 | Outpatient (CLI) | payer MEDICARE ==
[2017-11-26 09:26] VITALS: BMI 19.2
[~2018-05-06 18:59] MED LIST changes: +PLAVIX75 MG PO
== END | disposition home or self-care (01) ==
LOC: D.LABREF 18:59
DX: N39.0 Urinary tract infection, site not specified (principal)

== ENCOUNTER 2019-01-31 13:32 | Observation (INO) | payer MEDICARE ==
[~2019-01-31] VITALS: Ht 162.6 cm; Wt 46.1 kg
[2019-01-31] VITALS (7 sets, daily range): BP systolic 156–191; BP diastolic 47–93; BMI 22.0
[2019-01-31 14:37] LABS: BASOPHILS 0.7 % (0-2); EOSINOPHILS 1.9 % (0-7); HEMATOCRIT 32.6 % (36.0-48.0); HEMOGLOBIN 10.5 g/dL (12-16); IMMATURE GRANULOCYTES 0.2 % (0-5); LYMPHOCYTES 31.3 % (15-50); MCH 29.4 pg (26.0-34.0); MCHC 32.2 g/dL (31.0-37.0); MCV 91.3 fL (80.0-100.0); MONOCYTES 18.5 % (2-11); NEUTROPHILS 47.4 % (40-80); PLATELET COUNT 255 10x3/uL (130-400); RBC 3.57 10x6/uL (4.00-5.40); RDW 14.3 % (11.5-14.5); WBC 4.3 10x3/uL (4.8-10.8)
[2019-01-31 14:50] LABS: APPEARANCE CLEAR (CLEAR); BILIRUBIN NEGATIVE (NEGATIVE); COLOR YELLOW (YELLOW); GLUCOSE NEGATIVE (NEGATIVE); KETONE NEGATIVE (NEGATIVE); NITRITE NEGATIVE (NEGATIVE); PROTEIN NEGATIVE (NEGATIVE); SPECIFIC GRAVITY 1.015 (1.005-1.020); UROBILINOGEN NORMAL (NORMAL)
[2019-01-31 14:51] LABS: BACTERIA FEW /hpf (NONE SEEN); EPITHELIAL CELLS OCC /hpf (0-5); RED CELLS - URINE 0-5 /hpf (0-5); WHITE CELLS - URINE 0-5 /hpf (0-5)
[2019-01-31 15:05] LABS: ALBUMIN 3.3 g/dL (3.4-5.0); ALKALINE PHOSPHATASE 125 U/L (46-116); ALT (SGPT) 15 U/L (10-68); BILIRUBIN - TOTAL 0.33 mg/dL (0.2-1.3); CALC OSMOLALITY 277 mosm/kg (275-300); CALCIUM 8.9 mg/dL (8.5-10.1); CARBON DIOXIDE 27.3 mmol/L (21.0-32.0); CHLORIDE - SERUM 103 mmol/L (98-107); CREATININE - SERUM 0.7 mg/dL (0.6-1.3); GLUCOSE 95 mg/dL (74-106); POTASSIUM - SERUM 4.3 mmol/L (3.5-5.1); PROTEIN - SERUM 7.8 g/dL (6.4-8.2); SODIUM 138 mmol/L (136-145); UREA NITROGEN 19 mg/dL (7-18); eGFR NON AFRICAN AMERICAN 84 mL/min (90-120)
[2019-01-31 15:19] LABS: CKMB 1.6 U/L (0.0-3.6); CREATINE KINASE 83 UL (21-215); MAGNESIUM - SERUM 1.6 mg/dL (1.8-2.4); THYROID STIMULATING HORMONE 1.99 uIU/mL (0.36-3.74)
[2019-01-31 15:20] LABS: TROPONIN-I < 0.017 ng/mL (0.000-0.060)
[2019-01-31 15:54] LABS: APTT 31.6 SECONDS (22.8-39.4); INR 1.02 (0.85-1.17); PROTIME 12.9 SECONDS (11.6-15.0)
[2019-01-31 18:50] LABS: CKMB 1.7 U/L (0.0-3.6); CREATINE KINASE 82 UL (21-215)
[2019-01-31 18:58] LABS: TROPONIN-I < 0.017 ng/mL (0.000-0.060)
[2019-01-31 23:05] LABS: CKMB 1.3 U/L (0.0-3.6); CREATINE KINASE 72 UL (21-215)
[2019-01-31 23:07] LABS: TROPONIN-I < 0.017 ng/mL (0.000-0.060)
[2019-02-01] VITALS: BP 128/55
[2019-02-01 05:49] LABS: HEMATOCRIT 28.6 % (36.0-48.0); HEMOGLOBIN 9.2 g/dL (12-16); MCHC 32.2 g/dL (31.0-37.0); MCV 90.2 fL (80.0-100.0); PLATELET COUNT 219 10x3/uL (130-400); RBC 3.17 10x6/uL (4.00-5.40); RDW 14.2 % (11.5-14.5); WBC 4.1 10x3/uL (4.8-10.8)
[2019-02-01 06:22] LABS: ALBUMIN 2.8 g/dL (3.4-5.0); ALKALINE PHOSPHATASE 108 U/L (46-116); BILIRUBIN - TOTAL 0.29 mg/dL (0.2-1.3); CALC OSMOLALITY 277 mosm/kg (275-300); CALCIUM 8.6 mg/dL (8.5-10.1); CARBON DIOXIDE 26.7 mmol/L (21.0-32.0); CHLORIDE - SERUM 105 mmol/L (98-107); CKMB 1.4 U/L (0.0-3.6); CREATINE KINASE 59 UL (21-215); CREATININE - SERUM 0.8 mg/dL (0.6-1.3); GLUCOSE 81 mg/dL (74-106); POTASSIUM - SERUM 4.2 mmol/L (3.5-5.1); PROTEIN - SERUM 6.2 g/dL (6.4-8.2); SODIUM 139 mmol/L (136-145); UREA NITROGEN 16 mg/dL (7-18); eGFR NON AFRICAN AMERICAN 72 mL/min (90-120)
[2019-02-01 06:23] LABS: ALT (SGPT) 19 U/L (10-68)
[2019-02-01 08:29] LABS: EOSINOPHILS 3 % (0-7); LYMPHOCYTES 30 % (15-50); MONOCYTES 17 % (2-11); NEUTROPHILS 49 % (40-80); PLATELET ESTIMATE NORMAL
[2019-02-01 09:06] VITALS: BP 140/56
[2019-02-01 12:20] VITALS: BP 126/60
[2019-02-01 12:23] VITALS: Ht 162.6 cm; Wt 46.1 kg
[2019-02-01] MEDS ORDERED: MUCINEX600 MG PO (15:43)
[2019-02-01] MEDS ORDERED: BAYER CHEWABLE81 MG PO (15:43)
[2019-02-01 16:09] VITALS: BP 107/57
--- NOTE | 2019-02-01 16:59 | MORECARE ---
CASE MANAGEMENT DISCHARGE SUMMARY PATIENT: HERBERT HAUSER UNIT: [id number] ADM DATE: 01/31/19 AGE: 84 : 33 SEX: F ROOM/BED: D.2106 AUTHOR: MERRICK FORD PHYSICIAN: REFERRING PHYSICIAN: BALBINA NAZARIO MD DATE OF SERVICE: 02/01/19 Discharge Plan Patient Name: HERBERT HAUSER Facility: [facility]:[place] : 1935 Planned Disposition: Home with Home Health Anticipated Discharge Date: 02/01/19 Discharge Date: Expected LOS: 1 Initial Reviewer: [email or web address] Initial Review Date: 02/01/2019 Generated: 02/01/19 5:59 pm External Providers External Provider: [facility] Next Contact Date: 02/01/2019 Service Request Date: Service Type: Resolution: Reviewer: Comments: Patient Name: HERBERT HAUSER Page [id number] at 1659 All edits/amendments must be made on the electronic document DICTATION DATE: 02/01/191658 ZIGZAG ELASTIC ATTACHER: HAI 02/01/191658 RPT#: [id number] [place] DATE: STATUS: ADM IN [facility] [address] [place] [address] END OF REPORT
--- NOTE | 2019-02-01 17:07 | MORECARE ---
CASE MANAGEMENT DISCHARGE SUMMARY PATIENT: HERBERT HAUSER UNIT: [id number] ADM DATE: 01/31/19 AGE: 84 : 33 SEX: F ROOM/BED: D.2106 AUTHOR: MERRICK FORD PHYSICIAN: REFERRING PHYSICIAN: BALBINA NAZARIO MD DATE OF SERVICE: 02/01/19 Discharge Plan Patient Name: HERBERT HAUSER Facility: [facility]:[place] : 1935 Planned Disposition: Home with Home Health Anticipated Discharge Date: 02/01/19 Discharge Date: 02/01/2019 Expected LOS: 1 Initial Reviewer: [email or web address] Initial Review Date: 02/01/2019 Generated: 02/01/19 6:07 pm Comments DCP- Discharge Planning Updated by [email or web address]: Micah Rodas on 02/01/19 4:[address] Patient Name: HERBERT HAUSER Admission Status: ER Accout number: [id number] Admission Date: 01-31-2019 : 1935 Admission Diagnosis: Attending: BALBINA QUINN Current LOS: 1 Anticipated DC Date: 02-01-2019 Planned Disposition: Home with Home Health Primary Insurance: MEDICARE A & B PLANNED EXTERNAL PROVIDER: [facility] Discharge Planning Comments: PT DISCHARGING HOME, CM ADVISED BY BEDSIDE NURSE THAT PT HAS REQUESTED HOME HEALTH BE RESUMED AND PT WANTS RECORDS SENT TO [facility] IN [place]. CHOICE LETTER OBTAINED. CM FAXED RECORDS TO [facility] AT [phone]. Eyeglass Lens Grinder: Micah Rodas Coverage Notice Reviewer: [email or web address] - Micah Rodas Notice Issued Date-Time: 02/01/2019 16:45 Notice Type: Patient Choice Letter Notice Delivered To: Patient Relationship to Patient: Asset Protection Assistant Name: Delivery Method: HAND - Hand Delivered Rhonda Days: Prior Verbal Notification: Recipient Understood Notice: Yes Recipient Signature: Yes Med Rec Note Co-signed by Attending: Coverage Notice Comment: [facility] Last DP export: 02/01/19 3:59 p Patient Name: HERBERT HAUSER Page [phone] at 1260 All edits/amendments must be made on the electronic document DICTATION DATE: 02/01/191705 PUBLIC HEALTH TECHNICIAN: HAI 02/01/191705 RPT#: [id number] DC DATE:02/01/19 STATUS: DIS IN [facility] [address] [place] [address] END OF REPORT
== END 2019-02-01 17:00 | disposition home health service (06) ==
LOC: D.ER 13:32 → OBSVTIME 15:25 → D.EDHOLD 15:25 → D.M2 15:57
PROVIDERS: Emergency Medicine; Family Medicine; ADMIT Family Medicine; ATTEND Family Medicine
DX: R47.81 Slurred speech (principal); R47.1 Dysarthria and anarthria; M35.00 Sjogren syndrome, unspecified; I10 Essential (primary) hypertension; I25.10 Atherosclerotic heart disease of native coronary artery without angina pectoris; F03.90 Unspecified dementia, unspecified severity, without behavioral disturbance, psychotic disturbance, mood disturbance, and anxiety; H54.8 Legal blindness, as defined in USA; H26.9 Unspecified cataract

== ENCOUNTER → 2019-03-31 10:18 | Outpatient (CLI) | payer MEDICARE ==
[2019-02-01 12:23] VITALS: BMI 17.4
[~2019-03-31 10:18] MED LIST changes: +BAYER CHEWABLE81 MG PO; +MUCINEX600 MG PO
--- NOTE | 2019-04-05 14:03 | EC ---
PATIENT:HERBERT HAUSER DATE OF SERVICE: 03/31/19 SEX: F MEDICAL RECORD: [id number] DATE OF : 31 LOCATION:[facility] AGE OF PATIENT: 84 ADMISSION DATE: 03/31/19 REFERRING PHYSICIAN: INTERPRETING PHYSICIAN: KIRSTEN MEDRANO MD ECHOCARDIOGRAM REPORT ECHO CHARGES 4 ECHO COMPLETE Date: 03/31/19 CLINICAL DIAGNOSIS: CARDIOMYOPATHY H/O WY/HTN/CAD ECHOCARDIOGRAPHIC MEASUREMENTS (adult normal given) AC root (d.<3.7cm) 3.1 cm LV Septum d (<1.2 cm> 0.8 cm Valve Excursion 0.4 cm LV Septum (systole) 1.3 cm Left Atria (s.<4.0cm> 3.4 cm LVPW d(<1.2cm) 1.0 cm RV (d.<2.3cm) 2.5 cm LVPW (sytole) 1.6 cm LV diastole(<5.6CM) 5.0 cm MV E-F(>70mm/sec) cm LV systole 3.2 cm LVOT Diameter 2.1 cm MV exc.(>10mm) cm Est.ejection fraction (50-75%) % DOPPLER: LVIT cm/sec A 124 cm/sec E 66.0 cm/sec LA cm/sec RVSP 35.0 mmHg LVOT 70.0 cm/sec AOP1/2T m/s Asc. Ao 209 cm/sec RVOT 76.0 cm/sec RA cm/sec PA 72.0 cm/sec AV Gradient Peak 18.0 mmHg AV Mean 10.1 mmHg AV Area 1.0 cm MV Gradient Peak 9.0 mmHg MV Mean 2.0 mmHg MV Area cm COMMENTS: OP - HC Market Research Intern: 1 MEL LUKASZ Neck Band Operator: 3 Dr. Sanchez TAPE# PACS Pericardial Effusion N DATE OF SERVICE: Adequate 2D, color flow, spectral Doppler, and M-Mode. No LVH. LV internal dimensions are normal. LV is mildly globally hypo with reduced EF, estimated EF 40% to 45%. Aortic valve is calcified with restriction of leaflet motion. Peak gradient of 18 mmHg putting this in mild range. Left atrium is normal at 3.4 cm. Mitral valve shows no prolapse, but mitral annular calcification is present and moderate MR. Right-sided chambers grossly normal. Moderate TR. TRANSINT:[id number] Voice Confirmation ID: [id number] DOCUMENT ID: [id number] ECHOCARDIOGRAM REPORT [id number] HERBERT HAUSER,KIRSTEN Doll MD at 1403 CC: [id number] DICTATION DATE: 04/03/19 1342 ROCKET TEST FIRE WORKER: 04/03/19 1355 DEP CLI 03/31/19 [place] [id number]
== END | disposition home or self-care (01) ==
LOC: D.HCCARDIO 10:18
PROVIDERS: ATTEND Internal Medicine Interventional Cardiology
DX: I42.9 Cardiomyopathy, unspecified (principal)

== ENCOUNTER 2020-05-19 15:39 | Emergency (ER) | payer MEDICARE ==
[~2020-05-19] VITALS: Ht 162.6 cm; Wt 41.8 kg
[2020-05-19 15:40] VITALS: Ht 162.6 cm; Wt 41.8 kg
[2020-05-19 17:20] VITALS: BP 108/60
== END 2020-05-19 17:21 | disposition home or self-care (01) ==
LOC: D.ER 15:39
DX: S01.91XA Laceration without foreign body of unspecified part of head, initial encounter (principal); T14.8XXA Other injury of unspecified body region, initial encounter; W19.XXXA Unspecified fall, initial encounter; Y93.9 Activity, unspecified; Y92.9 Unspecified place or not applicable